=== PATIENT | female | born 1965 | race Caucasian/White ===

== ENCOUNTER → 2020-06-30 14:40 | Outpatient (CLI) | payer BC, SELFPAY ==
[2020-06-30 15:47] LABS: Basophils % 0.4 % (0.1-2.0); Eosinophils % 0.7 % (0.1-12.0); Hematocrit 40.7 % (37.0-47.0); Lymphocytes # 1.7 K/mm3 (0.7-4.5); Lymphocytes % 30.1 % (10-50); Mean Corpuscular HGB Conc 34.4 g/dL (31.8-35.4); Mean Corpuscular Hemoglobin 29.3 pg (27.0-31.2); Mean Corpuscular Volume 85.1 fl (81-99); Mean Platelet Volume 7.9 fl (7.4-10.4); Monocytes # 0.3 K/mm3 (0.1-1.0); Monocytes % 6.1 % (1.7-9.3); Neutrophils # 3.5 K/mm3 (1.8-7.8); Neutrophils % 62.7 % (37.0-80.0); Platelet Count 230 K/mm3 (142-424); Red Blood Count 4.79 M/mm3 (4.20-5.40); Red Cell Distribution Width 13.2 % (11.5-17.5); White Blood Count 5.5 K/mm3 (4.8-10.8)
== END ==
PROVIDERS: PCP Family Medicine; Visit Provider Family Medicine
DX: Z20.828 Contact with and (suspected) exposure to other viral communicable diseases (principal); U07.1 COVID-19
CPT/HCPCS: 36415; 85025; U0003

== ENCOUNTER → 2021-08-22 11:27 | Outpatient (CLI) | payer BC, SELFPAY | PROVIDERS: PCP Psychiatry & Neurology Sleep Medicine; Visit Provider Nurse Practitioner | DX: U07.1 COVID-19 (principal) | CPT/HCPCS: C9803; U0003; U0005 ==

== ENCOUNTER 2022-11-26 06:15 | Day surgery (SDC) | payer BC, SELFPAY ==
[2022-11-25 13:11] VITALS: BMI 30.9
[2022-11-26 06:28] VITALS: BP 147/55; PULSE 109; RESP 18; TEMP 36.6; O2SAT 96
[2022-11-26 06:57] LABS: Urine Pregnancy, HCG Qual. Negative (Negative)
[2022-11-26 07:21] VITALS: O2SAT 98
--- NOTE | 2022-11-26 07:56 | HMH.SCOPE ---
Procedure: Date: 11/26/22 Patient Date of :: 1965 Procedure Performed:: Colonoscopy with polypectomy Indications:: Screening Performing Provider:: Ace Silva MD Referring Provider:: Dr. John Sedation:: Monitored anesthesia care Procedure:: After informed consent was obtained the patient was taken to the endoscopy suite. Sedation ensued after the patient was transferred to the left lateral decubitus position. Pulse, blood pressure, and oxygen saturation were monitored throughout the procedure. Digital rectal exam revealed no significant abnormality. The colonoscope was placed in position. The entire colon was evaluated. The colonoscope was carefully removed and the patient was transferred to recovery in stable condition. Please see findings and specimens below for detail. Findings:: Bowel preparation moderate Moderate spasticity/lack of relaxation Polyps (see specimens) Specimens:: Adjacent periappendiceal polyps (cold biopsy forceps) Polyp at 60 cm (cold snare) Recommendations:: Timing of repeat colonoscopy is pending pathology but will likely be between 2-3 years secondary to moderate bowel preparation and spasticity/lack of relaxation. Complications:: No immediate Estimated blood obtained (mL): 1
[2022-11-26 08:00] VITALS: BP 81/48; PULSE 92; RESP 14; TEMP 36.1; O2SAT 93
--- NOTE | 2022-11-26 08:06 | P.PN_ITS ---
[facility] Disclaimer: The information contained in this section may have been updated after the patient was seen, as this information can be updated by other users. Medical History Allergies Hyperlipidemia Hypertension Surgical History History of colonoscopy Family History Other Family history of diabetes mellitus type II Social History Smoking Status: Never smoker alcohol intake: current substance use type: denies use current occupational status: employed Travel in the last 8 weeks: None caffeine: Yes [facility] Anesthesia Checklist Patient Identification Patient Identification: Verbal (Name & ) Structural Data Admitted From: Home Planned Operative Procedure/s: colonoscopy Consent for Planned Operative Procedure(s) Verified: Yes Airway Assessment C-Spine Mobility Assessed: Yes TMJ Mobility Assessed: Yes Dentition: Good Dentition Neurological Assessment Level of Consciousness: Awake, Alert and Appropriate Anesthesia Plan Anesthesia Risk discussed: Yes Anesthesia Plan: Verified ASA Class: II Anesthesia Type: MAC
[2022-11-26 08:10] VITALS: BP 91/56; PULSE 85; RESP 17; O2SAT 94
[2022-11-26 08:20] VITALS: BP 97/58; PULSE 79; RESP 17; O2SAT 97
[2022-11-26 08:30] VITALS: BP 101/59; PULSE 78; RESP 16; O2SAT 97
== END 2022-11-26 08:30 | disposition home or self-care (01) ==
PROVIDERS: PCP Family Medicine; Visit Provider Surgery
PROC: 0DJD8ZZ Inspection of Lower Intestinal Tract, Via Natural or Artificial Opening Endoscopic (ICD-10-PCS; CPT 45378; principal; 2022-11-26 07:30)
DX: Z12.11 Encounter for screening for malignant neoplasm of colon (principal); D12.4 Benign neoplasm of descending colon; Z79.899 Other long term (current) drug therapy
CPT/HCPCS: 45380; 45385; 81025

== ENCOUNTER → 2023-07-07 14:31 | Outpatient (CLI) | payer BC, SELFPAY ==
--- NOTE | 2023-07-07 14:46 | ECG_ITS ---
APPROVED REPORT Exam: Resting ECG HR:77 bpm ECG Measurements Heart Rate 77 AXES CA 159 P 48 QRSd 92 QRS 25 QT 378 T 21 QTc 409 Conclusion SINUS RHYTHM NORMAL ECG UNCONFIRMED REPORT Electronically signed by : Sancho Jane MD 07/08/2023 20:12:17
== END ==
LOC: RT 14:33
PROVIDERS: PCP Family Medicine; Visit Provider Nurse Practitioner Family
DX: R07.9 Chest pain, unspecified (principal)
CPT/HCPCS: 93005

== ENCOUNTER 2023-08-22 09:30 | Outpatient (RCR) | payer BC, SELFPAY ==
--- NOTE | 2023-06-12 15:20 | HMH.PTOPEV ---
PT Outpatient Evaluation Rehab PT Outpatient Evaluation Start: 06/12/23 15:08 Freq: Status: Active Protocol: Document 06/12/23 15:09 ALCIRA (Rec: 06/12/23 15:20 ALCIRA [id number]) E-signed By Dmitry Larry, PT Outpatient Therapy Subjective History Subjective History Pt reports insidious onset bilateral LE weakness beginning intermittently ~3 months ago. Pt reports difficulty has become more frequent with intermittent deep squating and kneeling while playing with grandchildren, ilir. 'after I' ve been on the floor with them .' Pt reports no pain in B/L knees or hips, 'it just feels like my legs won't push me back up sometimes.' New diagnosis of cancer in past 12 No months? Chief Complaint Weakness Symptom Type Other Symptoms Relieved By Nothing Symptoms Aggravated By Bending/Stooping,Physical Activity Prior Functional Limitations Squatting,Recreation Activity Current Functional Limitations Squatting,Recreation Activity Hip/Knee Eval Gait Observation General Gait Pattern Observation No Deviations/Normal Assistive Device Assistive Devices None / NA Palpation Tenderness bilateral Knee Palpation Finding None/Normal Hip Palpation Findings None/Normal MMT Hip Flexion Strength Grade 5 Normal Hip Abduction Strength Grade 4 Good Hip Adduction Strength Grade 5 Normal Hip Extension Strength Grade 4 Good Hip External Rotation Strength Grade 4 Good Hip Internal Rotation Strength Grade 4- Good- Knee Extension Strength Grade 5 Normal Knee Flexion Strength Grade 5 Normal ROM Hip Flexion w/Knee Extended Passive 0-45 Range of Motion (degrees) Hip External Rotation Passive Range of 0-30 Motion (degrees) Hip Internal Rotation Passive Range of 0-15 Motion (degrees) Knee Flexion Active Range of Motion ( 0-125 degrees) Lower Extremity Functional Index Activities Today, do you or would you have any difficulty at all with: a.Any of your usual work, housework or Moderate difficulty school activities b. Your usual hobbies, recreational or No difficulty sporting activities c. Getting into or out of the bath Moderate difficulty d. Walking between rooms A little bit of difficulty e. Putting on your shoes or socks A little bit of difficulty f. Squatting Extreme difficulty or unable to perform activity g. Lifting an object, like a bag of No difficulty groceries from the floor h. Performing light activities around No difficulty your home i. Performing heavy activities around Moderate difficulty your home j. Getting into or out of a car A little bit of difficulty k. Walking 2 blocks No difficulty l. Walking a mile No difficulty m. Going up or down 10 stairs (about 1 Moderate difficulty flight of stairs) n. Standing for 1 hour No difficulty o. Sitting for 1 hour No difficulty p. Running on even ground Quite a bit of difficulty q. Running on uneven ground Extreme difficulty or unable to perform activity r. Making sharp turns while running fast Extreme difficulty or unable to perform activity s. Hopping Moderate difficulty t. Rolling over in bed Extreme difficulty or unable to perform activity LEFI Score Lower Extremity Functional Index Score 48 Outpatient Therapy Assessment Impairments Problems/Impairmments Impaired Range of Motion, Impaired Strength,Impaired Squatting,Impaired Recreational Activities, Impaired Self Care/Self Management Prognosis Rehab Potential Good Clinical Impression Consistent with Diagnosis Yes Short Term Goals Number of Weeks 4 Increase Range of Motion Yes: WFL B/L HIPS,KNEES Increase Strength Yes: 4+-5/5 B/L LE'S Improve Ability to Squat Yes: WFL FULL-DEPTH Return to Recreational Activities Yes: PLAYING WITH GRANDCHILDREN WFL Patient to be Ind w/ HEP Yes Patient to be Ind w/ Advanced HEP Yes Outpatient Therapy Plan of Care Treatment Plan May Include Therapeutic Exercise Including Home Yes Exercise Program Manual Therapy Techniques Yes Neuromuscular Re-education Yes Therapeutic Activities to Return to Yes Previous Functional/Work Level ADL/Self Care Education Yes Thermal Modalities Yes Electrical Stimulation Yes Eval/Re-Eval Yes Frequency Times per week 2-3 Duration Number of Weeks 4-6 Addendums This patient is a candidate for social No or vocational rehab? Patient/Guardian verbally acknowledges Yes understanding of treatment program and consents to further treatment? Patient/Guardian verbally acknowledges Yes understanding of diagnosis, prognosis and goals for treatment? Eval Complexity PT Charges 87967 - Low Complexity Shoulder/Elbow Eval Shoulder Objective Measurements Elbow Objective Measurements PHYSICIAN CERTIFICATION: I certify the specified therapy services for Daja Claudio are required, authorized, and reviewed every 30 days.
--- NOTE | 2023-07-23 16:01 | HMH.RHREAS ---
Rehab Reassessment Rehab OP Re-assessment Start: 06/12/23 15:08 Freq: Status: Active Protocol: Document 07/23/23 15:53 ALCIRA (Rec: 07/23/23 16:01 PEDROMICHAEL [id number]) E-signed By Dmitry Larry, PT Lower Extremity Functional Index Activities Today, do you or would you have any difficulty at all with: a.Any of your usual work, housework or A little bit of difficulty school activities b. Your usual hobbies, recreational or A little bit of difficulty sporting activities c. Getting into or out of the bath Quite a bit of difficulty d. Walking between rooms No difficulty e. Putting on your shoes or socks No difficulty f. Squatting Extreme difficulty or unable to perform activity g. Lifting an object, like a bag of Moderate difficulty groceries from the floor h. Performing light activities around No difficulty your home i. Performing heavy activities around Moderate difficulty your home j. Getting into or out of a car Quite a bit of difficulty k. Walking 2 blocks No difficulty l. Walking a mile No difficulty m. Going up or down 10 stairs (about 1 A little bit of difficulty flight of stairs) n. Standing for 1 hour No difficulty o. Sitting for 1 hour No difficulty p. Running on even ground Moderate difficulty q. Running on uneven ground Quite a bit of difficulty r. Making sharp turns while running fast Extreme difficulty or unable to perform activity s. Hopping Quite a bit of difficulty t. Rolling over in bed A little bit of difficulty LEFI Score Lower Extremity Functional Index Score 50 Rehab Re-assessment Subjective Subjective Pt reports absence from skilled P.T. d/t 'cardiac issues, but my doctor cleared me last week to retrun to PT.' Pt reports overall improvement in walking/ standing endurance since I eval, however reports no change in the ability to perform 'the deep squatting activity' w/o use of arms to uh up. Objective Objective Notes MMT: B/L HIP FLX 4+-5/5, B/L HIP ABD 4+/5, B/L HIP ADD 4+-5 /5, B/L HIP EXT 4+-5/5, B/L HIP IR 4-4+/5, B/L HIP ER 4+/5 , B/L KNEE FLX AND EXT 5/5 LEF INDEX: 50 VS 48 ON I EVAL AROM: B/L HIP AND KNEE FLX AND EXT WFL Assessment Progress Assessment Progressing as Expected Assessment Notes IMPROVED STRENGTH, LEF INDEX AND ENDURANCE Patient goals met STG'S 10/28 Goals Not Met STG'S 10/28 Plan Plan Pt to continue w/skilled P.T. to make further improvements in strength to allow for optimal function Frequency of Therapy 1-2x/wk Duration of therapy 3-5WKS Time and Billing Re-Eval Time 12 Re-Eval Billing Units 1 PHYSICIAN CERTIFICATION: I certify the specified therapy services for Daja Claudio are required, authorized, and reviewed every 30 days.
--- NOTE | 2023-08-22 10:14 | HMH.RHREAS ---
Rehab Reassessment Rehab OP Re-assessment Start: 06/12/23 15:08 Freq: Status: Active Protocol: Document 08/22/23 08:03 ALCIRA (Rec: 08/22/23 10:13 TEREBRYAN [id number]) E-signed By Dmitry Larry, PT Rehab Re-assessment Subjective Subjective Pt reports overall 'I feel better since I've started therapy, but it hasn't helped my issue with specific activities. I'm ready to get more testing done to see what' s going on.' Objective Objective Notes MMT: B/L HIP FLX 4+-5/5, B/L HIP ABD 4+/5, B/L HIP ADD 4+-5 /5, B/L HIP EXT 4+-5/5, B/L HIP IR 4-4+/5, B/L HIP ER 4+/5 , B/L KNEE FLX AND EXT 5/5 AROM: B/L HIP AND KNEE FLX AND EXT WFL Assessment Progress Assessment Slower Than Expected Assessment Notes plateaued strength and reported functional progress since I eval Patient goals met STG'S 3/6 Goals Not Met STG'S 3/6 Plan Plan Pt to D/C w/continuation of HEP and to seek more diagnostic imaging and studies via PCP Frequency of Therapy na Duration of therapy na Time and Billing Re-Eval Time 11 Re-Eval Billing Units 1 PHYSICIAN CERTIFICATION: I certify the specified therapy services for Daja Claudio are required, authorized, and reviewed every 30 days.
== END 2023-08-22 10:30 | disposition home or self-care (01) ==
LOC: PT 09:30
PROVIDERS: PCP Family Medicine; Visit Provider Family Medicine
DX: R29.898 Other symptoms and signs involving the musculoskeletal system (principal)
CPT/HCPCS: 97110; 97163; 97164; 97530

== ENCOUNTER 2024-02-04 07:42 | Outpatient (CLI) | payer BC, SELFPAY ==
--- NOTE | 2024-02-04 07:48 | MM_ITS ---
PROCEDURE INFORMATION: Exam: Bilateral Screening 3D Mammography Exam date and time: 02/04/2024 7:48 AM Age: 58 years old Clinical indication: Screening mammogram TECHNIQUE: Imaging protocol: Bilateral Screening tomosynthesis and 2D mammography including computer-aided detection (CAD) when performed. COMPARISON: DMSB DIGITAL MAMM-SCREEN BILATERAL 10/12/2012 4:29 PM FINDINGS: MAMMOGRAPHY: Breast composition: There are scattered areas of fibroglandular density. Mass: None. Architectural distortion: No new or suspicious architectural distortion. Calcifications: No new or suspicious calcifications are present Asymmetric density: No new or suspicious asymmetric density is present Skin thickening: None. Axillary adenopathy: None. IMPRESSION: No mammographic evidence of malignancy. Recommend annual screening mammography unless otherwise clinically indicated. ASSESSMENT: BI-RADS category 1: Negative.
== END 2024-02-04 23:59 | disposition home or self-care (01) ==
LOC: RAD 07:43
PROVIDERS: PCP Family Medicine; Visit Provider Family Medicine
DX: Z12.31 Encounter for screening mammogram for malignant neoplasm of breast (principal)
CPT/HCPCS: 77063; 77067

== ENCOUNTER 2024-02-09 11:54 | Outpatient (CLI) | payer BC, SELFPAY ==
--- NOTE | 2024-02-09 12:00 | XR_ITS ---
FINAL REPORT CLINICAL HISTORY: HIP PAIN UNSPECIFIED COMPARISON: None FINDINGS: RIGHT HIP Two views of the right hip demonstrate no acute fracture or dislocation. The joint spaces appear normal. The visualized bony structures are well aligned. No soft tissue abnormality is seen. IMPRESSION: No acute bony abnormality. Reviewed, Interpreted and Dictated by Kemar Santiago MD Transcribed by Eugenie Kaur Authenticated and . [facility]
--- NOTE | 2024-02-09 12:00 | XR_ITS ---
FINAL REPORT CLINICAL HISTORY: HIP PAIN UNSPECIFIED COMPARISON: None FINDINGS: LEFT HIP: Two views of the left hip demonstrate no acute fracture or dislocation. The joint spaces appear normal. The visualized bony structures are well aligned. No soft tissue abnormality is seen. IMPRESSION: No acute bony abnormality. Reviewed, Interpreted and Dictated by Kemar Santiago MD Transcribed by Eugenie Kaur Authenticated and [facility][1]
== END 2024-02-09 23:59 | disposition home or self-care (01) ==
LOC: RAD 11:55
PROVIDERS: PCP Family Medicine; Visit Provider Family Medicine
DX: M25.551 Pain in right hip (principal); M25.552 Pain in left hip
CPT/HCPCS: 73502

== ENCOUNTER 2024-02-25 07:45 | Outpatient (CLI) | payer BC, SELFPAY ==
--- NOTE | 2024-02-25 | CA_ITS ---
FINAL REPORT TECHNIQUE: Color Doppler, duplex Doppler and gardner scale sonography of the bilateral neck vasculature was performed. Velocities were measured in the carotid arteries. Stenosis evaluation based on velocity criteria. CLINICAL HISTORY: HTN, HLD, bilateral bruits COMPARISON: None FINDINGS: The peak systolic velocity of the right common carotid artery is 119 cm/sec and internal carotid artery 130 cm/sec. The diastolic velocity in the internal carotid artery is 41 cm/sec. The ICA/CCA ratio is 1.1. Visually, a small amount of plaque is seen. These findings are consistent with less than 50% stenosis. The external carotid artery is patent. The right vertebral artery is patent with antegrade flow. The peak systolic velocity of the left common carotid artery is 135 cm/sec and internal carotid artery 128 cm/sec. The diastolic velocity in the internal carotid artery is 41 cm/sec. The ICA/CCA ratio is 0.95. Visually, a small amount of plaque is seen. These findings are consistent with less than 50% stenosis. The external carotid artery is patent. The left vertebral artery is patent with antegrade flow. IMPRESSION: No evidence of significant carotid stenosis. Bilateral patent vertebral arteries. If indicated, CTA or MRA could further evaluate. Reviewed, Interpreted and Dictated by Jet Ye III, MD Transcribed by Eugenie Kaur Authenticated and [facility]
== END 2024-02-25 23:59 | disposition home or self-care (01) ==
LOC: RT 07:47
PROVIDERS: PCP Family Medicine; Visit Provider Family Medicine
DX: R09.89 Other specified symptoms and signs involving the circulatory and respiratory systems (principal)
CPT/HCPCS: 93880

== ENCOUNTER 2024-03-31 11:50 | Outpatient (CLI) | payer BC, SELFPAY ==
--- NOTE | 2024-03-31 11:57 | XR_ITS ---
FINAL REPORT CLINICAL HISTORY: LOWER BACK PAIN, UNSPECIFIED pain/numbing after sitting for a little while COMPARISON: None FINDINGS: 5 views of the lumbar spine were obtained. There is no evidence of fracture or dislocation. The vertebral alignment is normal. Mild degenerative change is present with facet arthropathy in the lower lumbar spine. Vascular calcifications are present in the soft tissues. IMPRESSION: Mild degenerative change with lower lumbar facet arthropathy. No acute bony abnormality identified. Reviewed, Interpreted and Dictated by Jet Ye III, MD Transcribed by Eugenie Kaur Authenticated and [facility]
== END 2024-03-31 23:59 | disposition home or self-care (01) ==
LOC: RAD 11:53
PROVIDERS: PCP Family Medicine; Visit Provider Family Medicine
DX: M54.50 Low back pain, unspecified (principal)
CPT/HCPCS: 72110

== ENCOUNTER 2025-03-23 09:45 | Outpatient (CLI) | payer BC, SELFPAY ==
--- OUTSIDE RECORDS SUMMARY | 2024-09-30 11:30 | XMS_ITS ---
Author Organization [facility] Address [address] [place] [phone] Care Team Providers Care Track Car Operator Name Role Phone Anastacio Bay Primary Care Provider Sima Salamanca Unavailable [phone] Allergies No Known Allergies Results Component Value [...] day(s) 05/26/2015 Active Vitamin D3 1.25 MG (24965 UT) 1 cap(s) orally once a week; [...] Duration: 30 day(s) 03/25/2024 Active Vital Signs Blood pressure systolic 140 mm Hg 09/30/19 25 Blood pressure diastolic 78 mm Hg 025 Heart Rate 115 /min 09/30/2024 Height 67.50 in 09/30/2024 Weight 221 lbs 09/30/2024 BMI 34.10 kg/m2 09/30/2024 Encounters Encounter Location Date Provider Diagnosis [facility] [address] [facility] [address] [place] [phone] 09/30/2024 Sima Salamanca Influenza A J10. 1 [...] * Renate CLAUDIOOB:[birth year] (59 yo F)Acc No.[id number]:09/30/2024 Progress Notes Patient: Daja RAYMUNDO Provider: ISHAAN Stephenson :1965 A ge:58 Y S ex:Female Date:09/30/2024 Address:[address] [place], [place] [id number] Pcp:Anastacio Bay Subjective: * Chief Complaints: * [...] day , Taking Vitamin D3 1.25 MG (31379 UT) Capsule 1 cap(s) orally once a [...] * Procedure Codes: 9 4760 [place], [address] Flu Test- Nasal Swab, Modifiers: QW , 84068 COVID TEST IN HOUSE, Modifiers: QW , 3077F SYST BP = 140 MM HG6 IT, 3078F DIAST BP < 80 MM HG * Follow Up: p rn * Images: Billing Information: * Visit Code: 91765 Office Visit, Est Pt., Level 3. * Procedure Codes: [address] [place]. [address] Flu Test- Nasal Swab. Modifiers: QW 26585 COVID TEST IN HOUSE. Modifiers: QW 3077F SYST BP = 140 MM HG6 IT. 3078F DIAST BP < 80 MM HG. * Electronic signature of IHSAAN Manriquez on 03/23/2025 at 09:48 AM EDT Sign off status: Pending * Provider: ISHAAN Stephenson Date: 0 09/30/2024 Generated for Monique pastor/Summer/eTransmitting on: 0 03/23/2025 09:48 AM EDT History and Physical Notes * HPI [...]
--- OUTSIDE RECORDS SUMMARY | 2024-10-25 12:00 | XMS_ITS ---
Author Organization [facility] Address [address] [place] [phone] Care Team Providers Care Photolithographer Name Role Phone LowdenAnastacio rand Primary Care Provider [phone] Jorden John Unavailable [phone] Allergies No Known Allergies Results Component Value Reference Range Notes X ray : Spine, sacrum and co ccyx Reviewed date:02/10/2025 11:16:34 AM Interpretation:pt declined Performing Lab: Notes/Report: pt declined REASON FOR VISIT 5 mos checkup, Needs labs, colon cancer screening, Tdap, & shingles vaccine Medications Medication SIG (Take, Route, Frequency, Duration) Notes Start Date End Date Status Promethazine-DM 6.25-15 MG/5ML 5 ml as needed Orally every 6 hrs, prn 09/30/2024 Active Fluticasone Propionate 50 MCG/ACT 1 spray in each nostril Nasally Once a day; Duration: 30 day(s) 03/25/2024 Active Fexofenadine HCl 180 mg TAKE ONE TABLET BY MOUTH EVERY DAY with water. DO not take with fruit juices.; Duration: 30 Active Metoprolol Tartrate 25 mg 1 tab(s) Orall y once daily Active Vitamin C 500 MG 1 tab(s) orally once a day; Duration: 30 day(s) Active Atorvastatin Calcium 20 mg 1 tablet Oral ly once daily; Duration: 90 days Active Escitalopram Oxalate 10 mg 1 tablet Oral ly once daily; Duration: 90 days Active Losartan Potassium-HCTZ 50-12.5 MG 1 tablet Orally Once a day; Duration: 30 day(s) Active Vitamin D3 1.25 MG (08120 UT) 1 cap(s) orally once a week; Duration: 84 Active Vitamin B-12 1000 MCG 1 tab(s) orally on ce a day; Duration: 30 day(s) 05/26/2015 Active Immunizations Vaccine Route Administration Date Status Comme nts Tetanus Tdap-Adacel (over 7yrs) IM Intramuscular 10/25/2024 Administered Problems Problem Type SNOMED Code ICD Code Onset Dates Problem Status W/U Status Risk Notes Problem Pain in coccyx (finding) (96601656) Coccygeal pain (M53.3) Active confirmed Vital Signs Blood pressure systolic 122 mm Hg 10/26/19 25 Blood pressure diastolic 76 mm Hg 025 Heart Rate 81 /min 10/25/2024 Height 67.50 in 10/25/2024 Weight 223.0 lbs 10/25/2024 BMI 34.41 kg/m2 10/25/2024 Encounters Encounter Location Date Provider Diagnosis [facility] [address] [place] [phone] 10/25/2024 Jorden John Coccygeal pain M53.3 and Encounter for immunization Z23 Assessments Encounter Date Diagnosis (ICD Code) Assessment Notes Treatment Notes Treatment Clinical Notes Section Notes 10/25/2024 Coccygeal pain (ICD-10 - M53.3) 10/25/2024 Encounter for immunization (ICD-10 - Z23) Plan Of Treatment Medication Medication Name Sig Start Date Stop Date Notes CeleBREX 200 MG 1 capsule with food Orally Once a day Next Appt Details Follow Up: Paz Silverio n: Progress Notes * Renate CLAUDIOOB:[birth year] (59 yo F)Acc No.[id number]:10/25/2024 Progress Notes Patient: Daja RAYMUNDO Provider: Jorden John M.D. :1965 A ge:58 Y S ex:Female Date:10/25/2024 Address:[address] [place] [address] [id number] Pcp:Anastacio Bay Subjective: * Chief Complaints: * 1 . 5 mos checkup. 2. Needs labs, colon cancer screening, Tdap, & shingles vaccine. * HPI: C ardiology: The pt is here today for a check up on Hypertension and Hyperlipidemia. Pt states she is doing good except for continued pain in her tail bone when she sits for a while. Pt states her LMP was 6 months ago and would like to have her hormone levels checked. Pt would like to know if she should be vaccinated against measles or if she has an immunity since she had a measles outbreak as a child. Pt is not fasting. Pt states she is needing a refill for Fexofenadine and escitalopram sent to clinic pharmacy. Denies : Chest Pain. D enies : Short of Breath. D enies : Dizziness. D enies : Palpitations. * ROS: D ERMATOLOGY: no R bradley. n o H sweetie. G ASTROENTEROLOGY: no N ausea. n o V omiting. n o D iarrhea.? U ROLOGY: no D ifficulty urinating. n o B lood in urine. * Medical History: H ypertension, Hyperlipidemia, Allergic Rhinitis. * Surgical History: C -Section , D&C , Esophageal scope for chest pain 03/17/2006, colonoscopy, Dr. Silva, polyps 2022. * Family History: F ather: alive. M [...] nostril Nasally Once a day , Taking Vitamin B-12 1000 MCG Tablet 1 tab(s) orally once a day , Taking Vitamin D3 1.25 MG (58547 UT) Capsule 1 cap(s) orally once a [...] tablet Orally Once a day , Taking Promethazine-DM 6.25-15 MG/5ML Syrup 5 ml as needed Orally every 6 hrs, prn , Taking Fexofenadine HCl 180 mg Tablet TAKE ONE TABLET BY MOUTH EVERY DAY with water. DO not take with fruit juices. , Discontinued Tamiflu 75 MG Capsule 1 capsule Orally Twice a day , Medication List reviewed and reconciled with the patient * Allergies: N .K.D.A. Objective: * Vitals: W t:223.0, Temp:98.1, BP:122/76, HR:81, Nurse:HANSA, Ht: 67.50, BMI:34.41. Assessment: * Assessment: 1. C occygeal pain - M53.3 (Primary) 2 . E ncounter for immunization - Z23? Plan: * Treatment: * Immunizations: Tetanus Tdap-Adacel (over 7yrs) : 0.5 mL (Route: Intramuscular) given by Becki Ashton on Left Deltoid (Encounter for immunization) * Procedure Codes: 3 074F SYST BP LT 130 MM HG, 3078F DIAST BP < 80 MM HG * Follow Up: Jorge Luis Gao * Images: Billing Information: * Visit Code: 72369 Office Visit, Est Pt., Level 3. * Procedure Codes: 3074F SYST BP LT 130 MM HG. 3078F DIAST BP < 80 MM HG. * Electronic signature of Jorden John MD on 03/23/2025 at 09:48 AM EDT Sign off status: Pending * Provider: Jorden Jhon M.D. Date: 10/25/2024 Generated for Monique pastor/Summer/Abidasmitting on: 0 03/23/2025 09:48 AM EDT History and Physical Notes * HPI (History of Present Illness) Category Sub-Category Detail Notes Category Not es Cardiology Short of Breath Chest Pain Palpitations Dizziness
--- OUTSIDE RECORDS SUMMARY | 2025-03-21 06:00 | XMS_ITS ---
[facility] Address [address] [place] [id number] Care Team Providers Care Melter Clerk Name Role Phone Anastacio Bay Primary Care Provider [phone] Bianka Yuan Unavailable [phone] Allergies No Known Allergies Results Component Value Reference Range Notes CBC Venipuncture (in house) (Not yet reviewed by provider) Interpretation: Performing Lab: Notes/Report: wbc 5.6 3.5 - 10 lymph 21.0 15 - 50 mid 5.8 2 - 15 gran 73.2 35 - 80 rbc 4.56 3.5 - 5.5 hgb 13.4 11.5 - 16.5 hct 39.3 35 - 55 mcv 86.1 75 - 100 mch 29.4 25 - 35 mchc 34.1 31 - 38 platlet 208 100 - 400 P-Comprehensive Metabolic Pa char[place] (CMP) (Not yet reviewed by provider) Interpretation:BS 102 Performing Lab: Notes/Report: Test performed by [facility] [address] [facility] , [address], [place] [address] Remi Flores MD, Mine Deputy CLIA: [id number] Sodium 140 135-145 mmol/L Potassium 4.2 3.5-5.3 mmol/L Chloride 105 97-108 mmol/L CO2 25 20-32 mmol/L Glucose 102 65-99 mg/dL BUN 9 6-20 mg/dL Creatinine 0.68 0.50-1.00 mg/dL Calcium 9.1 8.6-10.4 mg/dL eGFR by Creatinine 101 >59 mL/min/1.73m2 Protein 6.7 6.0-8.3 g/dL Albumin 4.1 3.5-5.3 g/dL Alkaline Phosphatase 97 35-121 IU/L ALT (SGPT) 30 <5-47 IU/L AST (SGOT) 19 <5-40 IU/L Bilirubin, Total 0.7 <0.2-1.2 mg/dL A/G Ratio 1.6 1.1-2.5 P-Lipid Panel (Not yet revie wed by provider) Interpretation:LDL 90;HDL 51;TG 153 Performing Lab: Notes/Report: Test performed by [facility], [address] , [address], [place] [address] Remi Flores MD, Mine Deputy CLIA: [id number] Cholesterol 172 <200 mg/dL Triglycerides 153 <150 mg/dL HDL Cholesterol 51 >39 mg/dL Cholesterol / HDL Ratio 3.37 0.00-4.44 Ratio Non-HDL Cholesterol 121 <130 mg/dL LDL Cholesterol (Calculation) 90 <130 mg/dL LDL Cholesterol Levels* Less than 100 mg/dL Optimal 100 to 129 mg/dL Near Optimal/ Above Optimal 130 to 159 mg/dL Borderline High 160 to 189 mg/dL High 190 mg/dL and above Very High * Categories as recommended by the 2004 ATPIII guidelines LDL/HDL Ratio 1.8 <3.3 Ratio LDL Cholesterol Patient History Test Date: 03/12/2023 LDL Results: 100 Units: mg/dL % Change: - Test Date: 03/31/2024 LDL Results: 121 Units: mg/dL % Change: +21% Test Date: 03/21/2025 LDL Results: 90 Units: mg/dL % Change: -25% REASON FOR VISIT pap smear, Needs labs, mammogram, & shingles vaccine Medications Medication SIG (Take, Route, Frequency, Duration) Notes Start Date End Date Status Atorvastatin Calcium 20 mg TAKE ONE TABL ET BY MOUTH ONCE DAILY Active GNP Fexofenadine HCl 180 mg TAKE ONE TAB LET BY MOUTH EVERY DAY with water. DO not take with fruit juices. Active Promethazine-DM 6.25-15 MG/5ML 5 ml as needed Orally every 6 hrs, prn 09/30/2024 Active Vitamin B-12 1000 MCG 1 tab(s) orally on ce a day; Duration: 30 day(s) 05/26/2015 Active Vitamin D3 1.25 MG (14098 UT) 1 cap(s) orally once a week; Duration: 84 Active Vitamin C 500 MG 1 tab(s) orally once a day; Duration: 30 day(s) Active Fluticasone Propionate 50 MCG/ACT 1 spray in each nostril Nasally Once a day 03/25/2024 Active Escitalopram Oxalate 10 mg TAKE ONE TABL ET BY MOUTH ONCE DAILY Active Immunizations Vaccine Route Administration Date Status Comme nts Shingrix IM Intramuscular 03/21/2025 Administered Problems Problem Type SNOMED Code ICD Code Onset Dates Problem Status W/U Status Risk Notes Problem Uterine enlargement (N85.2) Active confirmed Vital Signs Blood pressure systolic 120 mm Hg 03/21/20 25 Blood pressure diastolic 60 mm Hg 025 Heart Rate 80 /min 03/21/2025 Height 67.50 in 03/21/2025 Weight 223.2 lbs 03/21/2025 BMI 34.44 kg/m2 03/21/2025 Encounters Encounter Location Date Provider Diagnosis [facility] [address] [facility] [address] [place] [id number] 03/21/2025 Bianka Yuan Essential hypertensi on I10 ; Mixed hyperlipidemia E78.2 ; Other seasonal allergic rhinitis J30.2 ; Anxiety F41.9 ; Uterine enlargement N85.2 ; Encounter for vaccination Z23 and Cervical cancer screening Z12.4 Assessments Encounter Date Diagnosis (ICD Code) Assessment Notes Treatment Notes Treatment Clinical Notes Section Notes 03/21/2025 Essential hypertension (ICD-10 - I10) 03/21/2025 Mixed hyperlipidemia (ICD-10 - E78.2) 03/21/2025 Other seasonal allergic rhinitis (ICD-10 - J30.2) 03/21/2025 Anxiety (ICD-10 - F41.9) 03/21/2025 Uterine enlargement (ICD-10 - N85.2) Given uterine enlargement and possible cyst on cervix will get a transvaginal US 03/21/2025 Encounter for vaccination (ICD-10 - Z23) preventive 03/21/2025 Cervical cancer screening (ICD-10 - Z12.4) Pap smear done today. Will call with results. Plan Of Treatment Medication Medication Name Sig Start Date Stop Date Notes Atorvastatin Calcium 20 mg TAKE ONE TABL ET BY MOUTH ONCE DAILY GNP Fexofenadine HCl 180 mg TAKE ONE TAB LET BY MOUTH EVERY DAY with water. DO not take with fruit juices. Losartan Potassium-HCTZ 50-1 2.5 MG TAKE ONE TABLET BY MOUTH EVERY DAY Fluticasone Propionate 50 MCG/ACT 1 spray in each nostril Nasally Once a day 03/25/2024 Escitalopram Oxalate 10 mg TAKE ONE TABL ET BY MOUTH ONCE DAILY Treatment Notes Assessment Notes Uterine enlargement Given uterine enlarg ement and possible cyst on cervix will get a transvaginal US Encounter for vaccination preventive Cervical cancer screening Pap smear done today. Will call with results. Pending Test Test Name Order Date CBC Venipuncture (in house) 03/21/2025 ultrasound : Transvaginal 03/21/2025 P-Pap Test Thin Prep 03/21/2025 P-Comprehensive Metabolic Panel (CMP) P-Lipid Panel 03/21/2025 Progress Notes * Renate CLAUDIOOB:[birth year] (59 yo F)Acc No.[id number]:03/21/2025 Progress Notes Patient: Daja RAYMUNDO Provider: THERESA Pierre :1965 A ge:59 Y S ex:Female Date:03/21/2025 Address:[address] [place] [address] GAIL BLACKMON [id number] Pcp:Anastacio Bay Subjective: * Chief Complaints: * 1 . Pap smear. 2. Needs labs, mammogram, & shingles vaccine. * HPI: G YN: 59 year old female presents with c/o amenorrhea n o menes for 6 months. c/o routine pap smear P t here for pap smear. c/o missed menstrual cycle. c/o control t ubal ligation. Denies : abnormal vag bleeding. D enies : vaginal discharge. D enies : abdominal pain. D enies : pelvic pain. D enies : Fever. D enies : incontinence. D enies : dysmenorrhea. D enies : menorrhagia. D enies : dysparaunia. D enies : breast complaints. D enies : hot flashes. D enies : Vaginal Itching. C ardiology: BloodPressure at Home P t states that she has been checking her BP at home and its been running low. Pt states this morning was 133/64. * ROS: C ARDIOLOGY: no C hest pain. L eg edema y es. n o S hortness of breath. D ERMATOLOGY: no R bradley. n o H sweetie. F EMALE REPRODUCTIVE: no H eavy periods. n o D ysparaunia. S exually active yes. n o D ysmenorrhea. n o I nfertility. n o F requent yeat infections. n o P elvic pain. n o B reast pain. n o N ipple discharge. C ontraception t ubal ligation. n o A bnormal vaginal discharge. n o H ot flashes.? G ASTROENTEROLOGY: no N ausea. n o V omiting. n o D iarrhea.? M USCULOSKELETAL: Joint pain y es, b ilateral feet. P SYCHOLOGY: Depression y es, m ed helps. U ROLOGY: no D ifficulty urinating. n o B lood in urine. * Medical History: H ypertension, Hyperlipidemia, Allergic Rhinitis. 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 L ast mammogram date . D enies H/O Abnormal pap smear c one. D ate of Last Period . D enies H/O STD. H /O control?BTL. * OB History: T otal pregnancies 3 . T otal living children 3 . C section(s) 1 . P regnancy # 1: N . P regnancy # 2: N . P egnancy # 3 P rimary C/S. * Surgical History: C -Section , D&C [...] day , Taking Vitamin D3 1.25 MG (57941 UT) Capsule 1 cap(s) orally once a week , Taking Vitamin C 500 MG Tablet 1 tab(s) orally once a day , Taking Promethazine-DM 6.25-15 MG/5ML Syrup 5 ml as needed Orally every 6 hrs, prn , Taking Atorvastatin Calcium 20 mg Tablet TAKE ONE TABLET BY MOUTH ONCE DAILY , Taking Escitalopram Oxalate 10 mg Tablet TAKE ONE TABLET BY MOUTH ONCE DAILY , Taking Losartan Potassium-HCTZ 50-12.5 MG Tablet TAKE ONE TABLET BY MOUTH EVERY DAY , Taking GNP Fexofenadine HCl 180 mg Tablet TAKE ONE TABLET BY MOUTH EVERY DAY with water. DO not take with fruit juices. , Discontinued Metoprolol Tartrate 25 mg Tablet 1 tab(s) Orally once daily , Medication List reviewed and reconciled with the patient * Allergies: N .K.D.A. Objective: * Vitals: W t: 223.2, Temp: 98.0, BP: 120/60, HR: 80, Nurse: lizzy, Ht: 67.50, BMI:34.44. * Examination: G eneral Examination: General Appearance: N AD, appears healthy, alert, pleasant.?HEENT: n ormal, PERRLA, TM's normal. O ral cavity: n ormal, mucosa moist and WNL.?Neck: n o lymphadenopathy. H eart: R RR. L ungs: n ormal, clear to auscultation. A bdomen: n ormal, bowel sounds present, no organomegaly or masses. N eurologic Exam: a lert and oriented. S kin: n ormal, no rash. P eripheral pulses: n ormal (2+) bilaterally. E xtremities: t race leg edema. G enitalia: n ormal external genitalia, poss cyst on cervix. G YN: External genitalia n ormal. U rethra: m eatus normal. V agina: n ormal, no lesions. C ervix: c ervical cyst, no cervical movement tenderness. U terus: u niformly enlarged, normal mobility, nontender. A dnexa: n o masses or tenderness bilaterally. R ectal exam: e xternal hemorrhoid one small. B reasts: n ormal, no lesions palpable, no signs of mastitis, no dimpling, bilateral, symmetrical, no dominate masses, no lymph nodes palpable. Assessment: * Assessment: 1. E ssential hypertension - I10 (Primary) 2 . M ixed hyperlipidemia - E78.2 3 . O ther seasonal allergic rhinitis - J30.2 4 . A nxiety - F41.9 5 . U terine enlargement - N85.2 6 . E ncounter for vaccination - Z23 7 . C ervical cancer screening - Z12.4 Plan: * Treatment: Value Reference Range A /G Ratio 1.6 1.1-2.5 - * A lbumin 4.1 3.5-5.3 - g/dL * A lkaline Phosphatase 97 35-121 - IU/L * A LT (SGPT) 30 <5-47 - IU/L * A ST (SGOT) 19 <5-40 - IU/L * B ilirubin, Total 0.7 <0.2-1.2 - mg/dL * B UN 9 6-20 - mg/dL * C alcium 9.1 8.6-10.4 - mg/dL * C hloride 105 97-108 - mmol/L * C O2 25 20-32 - mmol/L * C reatinine 0.68 0.50-1.00 - mg/dL * G lucose 102 H 65-99 - mg/dL * P otassium 4.2 3.5-5.3 - mmol/L * S odium 140 135-145 - mmol/L * P rotein 6.7 6.0-8.3 - g/dL * e GFR by Creatinine 101 >59 - mL/min/1.73m2 2.?Mixed hyperlipidemia? Continue Atorvastatin Calcium Tablet, 20 mg, TAKE ONE TABLET BY MOUTH ONCE DAILY.?LAB: P-Lipid Panel (Collection Date & Time - 03/21/2025 10:20 AM)?LDL 90;HDL 51;TG 153* Value Reference Range C holesterol / HDL Ratio 3.37 0.00-4.44 - Ratio * C holesterol 172 <200 - mg/dL * H DL Cholesterol 51 >39 - mg/dL * L DL Cholesterol (Calculation) 90 <130 - mg/d L * L DL/HDL Ratio 1.8 <3.3 - Ratio * N on-HDL Cholesterol 121 <130 - mg/dL * T riglycerides 153 H <150 - mg/dL ?LAB: CBC Venipuncture (in house) (Collection Date & Time - 03/21/2025)* Value Reference Range w bc 5.6 3.5 - 10 * l ymph 21.0 15 - 50 * m id 5.8 2 - 15 * g ran 73.2 35 - 80 * r bc 4.56 3.5 - 5.5 * h gb 13.4 11.5 - 16.5 * h ct 39.3 35 - 55 * m cv 86.1 75 - 100 * m ch 29.4 25 - 35 * m chc 34.1 31 - 38 * p latlet 208 100 - 400 * Jo Beard 03/21/2025 1 2:07:27 PM EDT > 3.?Other seasonal allergic rhinitis? Continue Fluticasone Propionate Suspension, 50 MCG/ACT, 1 spray in each nostril, Nasally, Once a day;?Continue GNP Fexofenadine HCl Tablet, 180 mg, TAKE ONE TABLET BY MOUTH EVERY DAY with water.DO not take with fruit juices..??4.?Anxiety ? Continue Escitalopram Oxalate Tablet, 10 mg, TAKE ONE TABLET BY MOUTH ONCE DAILY.??5.?Uterine enlargement?Imaging: ultrasound : Transvaginal* Magui De La Torre 03/21/2025 11:2 3:21 AM EDT > no auth required; CPT code 34590; faxed to [facility] Scheduling Notes: Given uterine enlargement and possible cyst on cervix will get a transvaginal US??6.?Encounter for vaccination? Notes: preventive??7.?Cervical cancer screening?LAB: P-Pap Test Thin Prep Notes: Pap smear done today. Will call with results.?? * Immunizations: Shingrix : 0.5 (Route: Intramuscular) given by VERNA Chan on Left Arm (Encounter for vaccination) * Procedure Codes: 8 5025 CBC WITH AUTO DIFF, 53436 VENIPUNCT, ROUTINE* * Images: Billing Information: * Visit Code: 57949 Preventive Care Est Pt Age 40-64. * Procedure Codes: 36249 CBC WITH AUTO DIFF. 49348 VENIPUNCT, ROUTINE*. 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
--- OUTSIDE RECORDS SUMMARY | 2025-03-23 09:48 | XMS_ITS | Patient Health Record ---
Author Organization [facility] Address [address] [place] [id number] Care Team Providers Care Software Intern Name Role Phone Anastacio Bay Primary Care Provider Jorden oJhn Unavailable [phone] Bianka Yuan Unavailable [phone] Sima Salamanca Unavailable [phone] Allergies No Known Allergies Results Component Value Reference Range Notes Influenza Screen (in house) Reviewed date:09/30/2024 05:01:10 PM Interpretation: Performing Lab: Notes/Report: results Pos A Covid test (in house) Reviewed date:09/30/2024 05:01:01 PM Interpretation: Performing Lab: Notes/Report: Result: Neg P-Lipid Panel (Not yet revie wed by provider) Interpretation:LDL 90;HDL 51;TG 153 Performing Lab: Notes/Report: Test performed by [facility] [address] [place] [address] , [address], [place] [address] Remi Flores MD, Brass Wind Instrument Maker CLIA: [id number] Cholesterol 172 <200 mg/dL Triglycerides 153 <150 [...] Results: 90 Units: mg/dL % Change: -25% P-Comprehensive Metabolic Pa charlotte (CMP) (Not yet reviewed by provider) Interpretation:BS 102 Performing Lab: Notes/Report: Test performed by [facility] [address], [place] [address] Remi Flores MD, Brass Wind Instrument Maker CLIA: [id number] Sodium 140 135-145 mmol/L Potassium 4.2 3.5-5.3 [...] 0.7 <0.2-1.2 mg/dL A/G Ratio 1.6 1.1-2.5 CBC Venipuncture (in house) (Not yet reviewed [...] - 38 platlet 208 100 - 400 P-Lipid Panel Reviewed date:04/01/2024 10:49:57 AM Interpretation:chol 209, trigs 155, non-hdl 152 Performing Lab: Notes/Report: Test performed by [facility] [address] [place] [address] , [address] , [place] [address] Remi Flores MD, Brass Wind Instrument Maker CLIA: [id number] Cholesterol 209 <200 mg/dL Triglycerides 155 <150 [...] Results: 121 Units: mg/dL % Change: +21% X ray : Spine, lumbosacral Reviewed date:04/01/2024 10:49:58 AM Interpretation:mild degenerative change with arthropathy Performing Lab: Notes/Report: mild degenerative change with arthropathy P-Comprehensive Metabolic Pa charlotte (CMP) Reviewed date:04/01/2024 10:49:57 AM Interpretation:gluc 106 Performing Lab: Notes/Report: Test performed by [facility] [address] [facility] , [address], [place] [address] Remi Flores MD, Brass Wind Instrument Maker CLIA: [id number] Sodium 138 135-145 mmol/L Potassium 3.9 3.5-5.3 [...] <0.2-1.2 mg/dL A/G Ratio 1.7 1.1-2.5 mg/dL X ray : Spine, sacrum and co ccyx Reviewed date:02/10/2025 11:16:34 AM Interpretation:pt declined Performing Lab: Notes/Report: pt declined Medications Medication SIG (Take, Route, Frequency, Duration) Notes Start Date End Date Status Vitamin B-12 1000 MCG 1 tab(s) orally on ce a day; Duration: 30 day(s) 05/26/2015 Active Vitamin D3 1.25 MG (34974 UT) 1 cap(s) orally once a week; Duration: 84 Active Vitamin C 500 MG 1 tab(s) orally once a day; Duration: 30 day(s) Active Atorvastatin Calcium 20 mg TAKE ONE TABL [...] Vaccine Route Administration Date Status Comme nts xFluzone (6mos and older)-trivalent IM Intramuscular 09/21/2013 Administered xFluzone (6mos and older)-trivalent IM Intramuscular 06/28/2014 Administered Tetanus Tdap-Adacel (over 7yrs) IM Intramuscular 10/25/2024 Administered Shingrix IM Intramuscular 03/21/2025 Administered Fluzone Quad (6months&older) IM Intramuscular 09/18/2017 Administered Flublok IM Intramuscular 06/05/2020 Administered COVID 19 Pfizer Unknown 12/12/2020 Administered COVID 19 Pfizer Unknown 07/07/2021 Administered Problems Problem Type SNOMED Code ICD Code Onset Dates Problem Status W/U Status Risk Notes Problem Hyperlipidemia (89143133) Hyperlipidemia (272.4) Active confirmed Problem Hypertension (90185263) Hypertension NOS (401.9) Active confirmed Problem Mammogram (21100013) Mammogram (793.80) Active confirmed Problem Vitamin D deficiency (71778666) Vitamin D deficiency (E55.9) Active confirmed Problem Vitamin B12 deficiency (402985250) Vitamin B12 deficiency (E53.8) Active confirmed Problem Essential hypertension (38545641) Essential hypertension (I10) Active confirmed Problem Anxiety (43957903) Anxiety (F41.9) Active confirmed Problem Bilateral caroti d bruits (R09.89) Active confirmed Problem Seasonal allergic rhinitis (847226397) Other seasonal allergic rhinitis (J30.2) Active confirmed Problem Mixed hyperlipidemia (867841073) Mixed hyperlipidemia (E78.2) Active confirmed Problem Chronic pain (77863901) Other chronic pain (G89.29) Active confirmed Problem Uterine enlargement (252132150) Uterine enlargement (N85.2) Active confirmed Problem Pain in coccyx (finding) (55823307) Coccygeal pain (M53.3) Active confirmed Problem Aortic valve disorder (2541142) Aortic heart murmur (I35.8) Active confirmed Problem Arthralgia of the pelvic region and thigh (725681407) Hip pain, unspecified laterality (M25.559) Active confirmed Vital Signs Heart Rate 80 /min 03/21/2025 Blood pressure diastolic 60 mm Hg 03/21/2025 Height 67.50 in 03/21/2025 Blood pressure systolic 120 mm Hg 03/21/2025 Weight 223.2 lbs 03/21/2025 BMI 34.44 kg/m2 03/21/2025 Encounters Encounter Location Date Provider Diagnosis [facility] [address], [place] [id number] 03/25/2024 Jorden John Essential hypertensi on I10 ; Mixed hyperlipidemia E78.2 ; Other seasonal allergic rhinitis J30.2 ; Other chronic pain G89.29 and Low back pain, unspecified M54.50 [facility] [address] [facility] [address] [place], [place] [id number] 03/31/2024 Jorden John Essential hypertensi on I10 and Mixed hyperlipidemia E78.2 [facility] [address] [facility] [address] [place], [place] [phone] 05/24/2024 Jorden John Essential hypertensi on I10 [facility] [address] [facility] [address] [place], [place] [id number] 09/30/2024 Sima Salamanca Influenza A J10.1 [facility] [address] [place], [place] [id number] 10/25/2024 J Lc John Coccygeal pain M53.3 and Encounter for immunization Z23 [facility] [address] [facility] [address] [place], [place] [phone] 03/21/2025 Bianka Yuan Essential hypertensi on I10 ; Mixed hyperlipidemia E78.2 ; Other seasonal allergic rhinitis J30.2 ; Anxiety F41.9 ; Uterine enlargement N85.2 ; Encounter for vaccination Z23 and Cervical cancer screening Z12.4 [facility] [address] [place], [place] [id number] 04/01/2024 Jorden Lc John [facility] [address] [place], [place] [id number] 01/10/2025 Anastacio Bay Assessments Encounter Date Diagnosis (ICD Code) Assessment Notes Treatment Notes Treatment Clinical Notes Section Notes 03/25/2024 Essential hypertension (ICD-10 - I10) 03/31/2024 Essential hypertension (ICD-10 - I10) 03/31/2024 Mixed hyperlipidemia (ICD-10 - E78.2) 05/24/2024 Essential hypertension (ICD-10 - I10) continue current therapy 09/30/2024 Influenza A (ICD-10 - J10.1) Rest, fluids, tylenol or motrin for fevers. Home until fever free for 24-48 hours without the use of medication. 10/25/2024 Encounter for immunization (ICD-10 - Z23) 10/25/2024 Coccygeal pain (ICD-10 - M53.3) 03/21/2025 Essential hypertension (ICD-10 - I10) 03/25/2024 Mixed hyperlipidemia (ICD-10 - E78.2) 03/21/2025 Mixed hyperlipidemia (ICD-10 - E78.2) 03/21/2025 Other seasonal allergic rhinitis (ICD-10 - J30.2) 03/25/2024 Other seasonal allergic rhinitis (ICD-10 - J30.2) 03/25/2024 Other chronic pain (ICD-10 - G89.29) 03/21/2025 Anxiety (ICD-10 - F41.9) 03/25/2024 Low back pain, unspecified (ICD-10 - M54.50) 03/21/2025 Uterine enlargement (ICD-10 - N85.2) Given uterine enlargement and possible cyst on cervix will get a transvaginal US 03/21/2025 Encounter for vaccination (ICD-10 - Z23) preventive 03/21/2025 Cervical cancer screening (ICD-10 - Z12.4) Pap smear done today. Will call with results. Plan Of Treatment Pending Test Test Name Order Date CBC Venipuncture (in house) 03/21/2025 ultrasound : Transvaginal 03/21/2025 Mammogram 03/21/2025 P-Pap Test Thin Prep 03/21/2025 P-Comprehensive Metabolic Panel (CMP) P-Lipid Panel 03/21/2025 Insurance Providers Payer Name Payer Address Payer Phone Subscriber Number Group Number Insured Name Patient Relationship to Insured Coverage Start Date Coverage End Date [employer] [address] [place] [address] [id number] Daja Claudio Self - patient is the insured Medications Administered Medication Instructions Date of Administration Dosage Notes B-12 02/08/2014 1 mL B-12 02/21/2014 1 mL B-12 02/28/2014 1 mL B-12 03/07/2014 1 mL B-12 04/14/2014 1 mL B-12 05/19/2014 1 mL B-12 07/15/2014 1 mL Dexamethasone 07/30/2022 1 mL Medical (General) History Medical History History ICD Code Hypertension Hyperlipidemia Allergic Rhinitis Surgical History Surgery Date(Month/Year) D&C Esophageal scope for chest pain 03/17/20 colonoscopy, Dr. Silva, polyps 2022 Hospitalization History Reason Date(Month/Year)
--- OUTSIDE RECORDS SUMMARY | 2025-03-23 09:48 | XMS_ITS | Clinical Summary ---
Author Organization [facility] Address [address] [place] [address] Care Team Providers Care Behavioral Health Care Manager Name Role Phone Anastacio Bay MD Primary Care Provider + [phone] Allergies No known active allergies Medications atorvastatin (LIPITOR) 20 MG tablet Take 1 tablet by mouth Daily. 05/07/2023 Active escitalopram (LEXAPRO) 10 MG tablet Take 1 tablet by mouth Daily. 05/07/2023 Active loratadine (CLARITIN) 10 MG tablet Take 1 tablet by mouth Daily. 05/07/2023 Active metoprolol tartrate (LOPRESSOR) 25 MG tablet TAKE ONE TABLET BY MOUTH EVERY DAY --TAKE WITH FOOD-- 07/08/2023 Active thiamine (VITAMIN B-1) 100 MG tablet tablet Take 1 tablet by mouth Daily. Active Cholecalciferol 25 MCG (1000 UT) tablet Take 1 tablet by mouth Daily. Active coenzyme Q10 100 MG capsule Take 1 capsule by mouth As Needed. Active Family History Medical History Relation Name Comments Heart disease Father Heart failure Father Heart disease Mother Relation Name Status Comments Brother Father Mother Alive Sister 1 Alive Sister 2 Alive Social History Tobacco Use Types Packs/Day Years Used Date Smoking Tobacco: Never Smokeless Tobacco: Never Tobacco Cessation:Counseling Given: Not Answered Alcohol Use Standard Drinks/Week Comments Never 0 (1 standard drink = 0.6 oz pur e alcohol) Abuse Screen Answer Date Recorded Unsafe at Home or Work/School Not on file Feels Threatened by Someone? Not on file 04/2023 Does Anyone Keep You from Co ntacting Others or Doint Things Outside the Home? Not on file 06/02/2023 Physical Sign of Abuse Present Not on file 1 Housing Stability Answer Date Recorded Current Living Arrangements Not on file 04/2023 Potentially Unsafe Housing Conditions Not on robi e 06/02/2023 Family and Community Support Answer Scotty e Recorded Help with Day-to-Day Activities Not on file 06/02/2023 Lonely or Isolated Not on file 06/02/2023 Employment Answer Date Recorded Do you want help finding or keeping work or a salo b? Not on file 06/02/2023 Disabilities Answer Date Recorded Concentrating, Remembering, or Making Decisions Difficulty Not on file 06/02/2023 Doing Errands Independently Difficulty Not on fi le 06/02/2023 Education Answer Date Recorded Help with school or training? Not on file Preferred Language Not on file 06/02/2023 Comments Unknown Sex and Gender Information Value Date Recorded Sex Assigned at Not on file Legal Sex Female 11:50 AM EDT Gender Identity Not on file Sexual Orientation Not on file Last Filed Vital Signs Vital Sign Reading Time Taken Comments Blood Pressure 136/74 07/14/2023 1:47 PM EST Pulse 83 07/14/2023 1:47 PM EST Temperature - - Respiratory Rate - - Oxygen Saturation 97% 07/14/2023 1:47 PM EST Inhaled Oxygen Concentration - - Weight 98.9 kg (218 lb) 07/14/2023 1:47 PM EST Height 170.2 cm (5' 7 ) 07/14/2023 1:47 PM EST Body Mass Index 34.14 07/14/2023 1:47 PM EST Plan of Treatment Health Maintenance Due Date Last Done Comments Annual Gynecologic Pelvic an d Breast Exam 1965 LIPID PANEL 1965 TDAP/TD VACCINES (1 - Tdap) 11/08/1986 MAMMOGRAM 2007 COLOGUARD 11/08/2012 COLON CANCER SCREENING 5 YEA R SIGMOIDOSCOPY 11/08/2012 COLONOSCOPY 11/08/2012 COLORECTAL CANCER SCREENING 11/08/2012 CT COLONOGRAPHY 11/08/2012 FECAL OCCULT BLOOD TEST 11/08/2012 FIT Testing (1 year) 11/08/2012 Pneumococcal Vaccine 50+ (1 of 1 - PCV) 11/08/2017 ZOSTER VACCINE (1 of 2) 11/08/2017 ANNUAL PHYSICAL 07/10/2023 HEPATITIS C SCREENING 07/10/2023 COVID-19 Vaccine (4 - 2023-25 season) 2024 07/07/2021, 12/12/2020, 11/16/2020 INFLUENZA VACCINE 05/25/2025 09/18/2017 Insurance Care Teams Behavioral Health Care Manager Relationship Specialty Start Date End Date Anastacio Bay MD [address] [place] [id number] PCP - General Family Medicine 07/09/23
--- NOTE | 2025-03-23 09:52 | US_ITS ---
PROCEDURE: US TRANSVAGINAL CLINICAL INDICATION: UTERINE ENLARGEMENT COMPARISON: No exams were available for comparison FINDINGS: Transvaginal sonographic images of the pelvis were obtained. UTERUS: 8.1cm x 6.1 cmx 5.8 cm retroflexed and axial with a combined endometrial thickness of 7.2mm. There are a couple of small nabothian cysts in the cervix. There is a small anterior fibroid measuring 1.4 cm x 0.9 cm x 1.2 cm There is a 2nd small fibroid within the myometrium that measures 1.0 cm x 0.8 cm LEFT OVARY: 3.0cmx 2.6 cmx1.4cm with a volume of 5.8ml. RIGHT OVARY: 2.5 cmx 2.3cmx1.9 cm with a volume of 6ml. Both ovaries are seen and appear normal. Doppler flow to both ovaries are seen. There is no fluid in the cul-de-sac. IMPRESSION: 1. Retroflexed and axial uterus enlarged in size. The endometrium measures 7.2 mm. There are 2 small fibroids within the uterus measuring 1.4 cm and 1.0 cm. 2. Both ovaries are seen and appear atrophic. 3. No fluid in the cul-de-sac Dictated by: Domincik Bui MD 03/23/2025 15:10 Dominick Bui MD in [place] 03/23/2025 15:10
== END 2025-03-23 23:59 | disposition home or self-care (01) ==
PROVIDERS: PCP Nurse Practitioner Family; Visit Provider Nurse Practitioner Family
DX: N85.4 Malposition of uterus (principal); D25.9 Leiomyoma of uterus, unspecified; N83.312 Acquired atrophy of left ovary; N83.311 Acquired atrophy of right ovary; N85.2 Hypertrophy of uterus
CPT/HCPCS: 76830

== ENCOUNTER 2025-03-28 14:33 | Outpatient (CLI) | payer BC, SELFPAY ==
--- OUTSIDE RECORDS SUMMARY | 2024-09-30 11:30 | XMS_ITS ---
Author Organization [facility] Address [address] [place] [id number] Care Team Providers Care Rn Endocrinology Name Role Phone Anastacio Bay Primary Care Provider Sima Salamanca Unavailable [phone] Allergies No Known Allergies Results Component Value Reference Range Notes Influenza Screen (in house) Reviewed date:09/30/2024 05:01:10 PM Interpretation: Performing Lab: Notes/Report: results Pos A Covid test (in house) Reviewed date:09/30/2024 05:01:01 PM Interpretation: Performing Lab: Notes/Report: Result: Neg REASON FOR VISIT cough,low grade fever Medications Medication SIG (Take, Route, Frequency, Duration) Notes Start Date End Date Status Tamiflu 75 MG 1 capsule Orally Twi ce a day; Duration: 5 day(s) 09/30/2024 Active Promethazine-DM 6.25-15 MG/5ML 5 ml as needed Orally every 6 hrs, prn 09/30/2024 Active CeleBREX 200 MG 1 capsule with food Orally Once a day; Duration: 30 day(s) Active Losartan Potassium-HCTZ 50-12.5 MG 1 tablet Orally Once a day; Duration: 30 day(s) Active Atorvastatin Calcium 20 mg 1 tablet Oral ly once daily; Duration: 90 days Active Vitamin C 500 MG 1 tab(s) orally once a day; Duration: 30 day(s) Active Metoprolol Tartrate 25 mg 1 tab(s) Orall y once daily Active Vitamin B-12 1000 MCG 1 tab(s) orally on ce a day; Duration: 30 day(s) 05/26/2015 Active Vitamin D3 1.25 MG (07978 UT) 1 cap(s) orally once a week; Duration: 84 Active Escitalopram Oxalate 10 mg 1 tablet Oral ly once daily; Duration: 90 days Active Fluticasone Propionate 50 MCG/ACT 1 spray in each nostril Nasally Once a day; Duration: 30 day(s) 03/25/2024 Active Fexofenadine HCl 180 MG 1 tablet swallow whole with water; do not take with fruit juices. Orally Once a day; Duration: 30 day(s) 03/25/2024 Active Vital Signs Weight 221 lbs 09/30/2024 Blood pressure systolic 140 mm Hg 09/30/19 25 Blood pressure diastolic 78 mm Hg 025 Heart Rate 115 /min 09/30/2024 Height 67.50 in 09/30/2024 BMI 34.10 kg/m2 09/30/2024 Encounters Encounter Location Date Provider Diagnosis [facility] [address] [facility] [address] [place] [id number] 09/30/2024 Sima Salamanca Influenza A J10. 1 Assessments Encounter Date Diagnosis (ICD Code) Assessment Notes Treatment Notes Treatment Clinical Notes Section Notes 09/30/2024 Influenza A (ICD-10 - J10.1) Rest, fluids, tylenol or motrin for fevers. Home until fever free for 24-48 hours without the use of medication. Plan Of Treatment Medication Medication Name Sig Start Date Stop Date Notes Tamiflu 75 MG 1 capsule Orally Twi ce a day; Duration: 5 day(s) 09/30/2024 Promethazine-DM 6.25-15 MG/5ML 5 ml as n eeded Orally every 6 hrs, prn 09/30/2024 Treatment Notes Assessment Notes Influenza A Rest, fluids, tyleno l or motrin for fevers. Home until fever free for 24-48 hours without the use of medication. Next Appt Details Follow Up: prn, Reason: Progress Notes * Renate CLAUDIOOB:[birth year] (59 yo F)Acc No.[id number]:09/30/2024 Progress Notes Patient: Daja RAYMUNDO Provider: ISHAAN Stephenson :1965 A ge:58 Y S ex:Female Date:09/30/2024 Address:[address] [place], [place] [id number] Pcp:Anastacio Bay Subjective: * Chief Complaints: * 1 . Cough,low grade fever. * HPI: E NT/respiratory: 58 year old female presents with c/o cough P t complains of dry without any sputum production cough that started yesterday morning. Associated with low grade fever and bodyaches . * ROS: D ERMATOLOGY: no R bradley. [...] day , Taking Vitamin D3 1.25 MG (78407 UT) Capsule 1 cap(s) orally once a week , Taking Vitamin C 500 MG Tablet 1 tab(s) orally once a day , Taking Metoprolol Tartrate 25 mg Tablet 1 tab(s) Orally once daily , Taking Escitalopram Oxalate [...] Allergies: N .K.D.A. Objective: * Vitals: W t:221, Temp:99.9, BP:140/78, HR:115, O2 Sat:96% on RA, Nurse:garcia, Ht: 67.50, BMI:34.10. * Examination: E NT/Respiratory: General Appearance: N AD. E ars: a uditory canals normal bilaterally, TM's WNL. N ose : turbinates red, congested. S inuses : non tender bilaterally. O ral cavity : erythema without exudate on pharynx. N nicanor : n o cervical lymphadenopathy. H eart : R RR, normal S1 S2, no murmurs. L ungs: c lear to auscultation bilaterally. Assessment: * Assessment: 1. I cherry Dueñas - J10.1 (Primary) Plan: * Treatment: Value Reference Range r esults Pos A * Tenisha Nolan 09/30/2024 4:02:21 PM > , Provider reviewed results while patient in office.Sima Salamanca 09/30/2024 5:01:05 PM > ?LAB: Covid test (in house) (Collection Date & Time - 09/30/2024)* Value Reference Range R esult: Neg Tenisha Long 09/30/2024 4:02:53 PM > , Provider reviewed results while patient in office.Sima Salamanca 09/30/2024 5:00:57 PM > Notes: Rest, fluids, tylenol or motrin for fevers. Home until fever free for 24- 48 hours without the use of medication.?? * Procedure Codes: 9 4760 [place], [address] Flu Test- Nasal Swab, Modifiers: QW , 92645 COVID TEST IN HOUSE, Modifiers: QW , 3077F SYST BP = 140 MM HG6 IT, 3078F DIAST BP < 80 MM HG * Follow Up: p rn * Images: Billing Information: * Visit Code: 01126 Office Visit, Est Pt., Level 3. * Procedure Codes: [address] [place]. [address] Flu Test- Nasal Swab. Modifiers: QW 20698 COVID TEST IN HOUSE. Modifiers: QW 3077F SYST BP = 140 MM HG6 IT. 3078F DIAST BP < 80 MM HG. * Electronic signature of ISHAAN Manriquez on 03/28/2025 at 02:39 PM EDT Sign off status: Pending * Provider: ISHAAN Stephenson Date: 0 09/30/2024 Generated for Monique pastor/Summer/eTransmitting on: 0 03/28/2025 02:39 PM EDT History and Physical Notes * HPI (History of Present Illness) Category Sub-Category Detail Notes Category Not es ENT/respiratory cough Pt complains of dry without any sputum production cough that started yesterday morning. Associated with low grade fever and bodyaches Examination Category Sub-Category Detail Notes Category Not es ENT/Respiratory Oral cavity : erythema without exudate on pharynx Sinuses : non tender bilateral ly Ears: auditory canals norm al bilaterally, TM's WNL Neck : no cervical lymphade nopathy Heart : RRR, normal S1 S2, n o murmurs Lungs: clear to auscultatio n bilaterally General Appearance: NAD Nose : turbinates red, sylvain ested
--- OUTSIDE RECORDS SUMMARY | 2024-10-25 12:00 | XMS_ITS ---
Author Organization [facility] Address [address] [place] [phone] Care Team Providers Care Dining Car Waiter/Waitress Name Role Phone [place] IslandAnastacio rand Primary Care Provider Jorden John Unavailable [phone] Allergies No Known Allergies Results Component Value [...] 30 day(s) Active Vitamin D3 1.25 MG (34345 UT) 1 cap(s) orally once a week; Duration: 84 Active Vitamin B-12 1000 MCG 1 tab(s) orally on ce a day; Duration: 30 day(s) 05/26/2015 Active Immunizations Vaccine Route Administration Date Status Comme nts Tetanus Tdap-Adacel (over 7yrs) IM Intramuscular 10/25/2024 Administered Problems Problem Type SNOMED Code ICD Code Onset Dates Problem Status W/U Status Risk Notes Problem Pain in coccyx (finding) (62702219) Coccygeal pain (M53.3) Active confirmed Vital Signs Weight 223.0 lbs 10/25/2024 Blood pressure systolic 122 mm Hg 10/26/19 25 Blood pressure diastolic 76 mm Hg 025 Heart Rate 81 /min 10/25/2024 Height 67.50 in 10/25/2024 BMI 34.41 kg/m2 10/25/2024 Encounters Encounter Location Date Provider Diagnosis [facility] [address] [place] [phone] 10/25/2024 Jorden John Coccygeal pain M53.3 and [...] * Renate CLAUDIOOB:[birth year] (59 yo F)Acc No.[id number]:10/25/2024 Progress Notes Patient: Daja RAYMUNDO Provider: Jorden John M.D. :1965 A ge:58 Y S ex:Female Date:10/25/2024 Address:[address] [place] [address] [id number] Pcp:Anastacio Bay Subjective: * Chief Complaints: * [...] day , Taking Vitamin D3 1.25 MG (87158 UT) Capsule 1 cap(s) orally once a [...] * Images: Billing Information: * Visit Code: 87442 Office Visit, Est Pt., Level 3. * Procedure Codes: 3074F SYST BP LT 130 MM HG. 3078F DIAST BP < 80 MM HG. * Electronic signature of Jorden John MD on 03/28/2025 at 02:39 PM EDT Sign off status: Pending * Provider: Jorden John M.D. Date: 10/25/2024 Generated for Monique pastor/Summer/Abidasmitting on: 03/28/2025 02:39 PM EDT History and Physical Notes * HPI (History of Present Illness) Category Sub-Category Detail Notes Category Not es Cardiology Short of Breath Chest Pain Palpitations Dizziness
--- OUTSIDE RECORDS SUMMARY | 2025-03-21 06:00 | XMS_ITS ---
Author Organization [facility] Address [address] [place] [id number] Care Team Providers Care Manager Molecular Name Role Phone Anastacio Bay Primary Care Provider Bianka Yuan Unavailable [phone] Allergies No Known Allergies Results Component Value [...] and other clinical and laboratory findings. See [email or web address] for further information. Test performed by [facility] d/b/[facility], [address] [place] [address] , [address], [place] [address], Jose Quevedo DO, Bone Tender, [facility]# [id number] P-Pap Test Thin Prep Reviewed date:03/23/2025 01:22:07 [...] This specimen has been analyzed by the [employer] Imaging System, an interactive computer system which assists the lab in the screening of ThinPrep Pap Test slides. Following imaging, the slide was reviewed by a Ranch Manager and/or Pathologist. Cervical cytology is a screening test primarily for squamous cancers and precursors and has associated false-negative and false-positive results. New technologies such as liquid-based preparations may decrease but will not eliminate all false-negative results. Regular sampling and follow-up of unexplained clinical signs and symptoms are recommended to minimize false negative results. End of Report Technical services provided by [facility] [employer], [facility], [facility]a [facility] [address] [place] [address] , [place] [address] Frank Rowe MD, Bone Tender. Case reviewed and diagnosis rendered at [facility] [employer], [facility], d/b/a [place] [address] [place] [address] Josh Rasheed, [place] [address] Frank Rowe MD, Bone Tender. CONFIDENTIAL P-Comprehensive Metabolic Pa charlotte (CMP) Reviewed date:03/23/2025 01:22:36 PM Interpretation:BS 102 Performing Lab: Notes/Report: Test performed by [facility] [address] [place] [address] Josh Rasheed, [address], [place] [address] Remi Flores MD, Bone Tender CLIA: [id number] Sodium 140 135-145 mmol/L Potassium 4.2 3.5-5.3 [...] 153 Performing Lab: Notes/Report: Test performed by [facility] [address] , [address], [place] [address] Remi Flores MD, Bone Tender CLIA: [id number] Cholesterol 172 <200 mg/dL Triglycerides 153 <150 [...] day(s) 05/26/2015 Active Vitamin D3 1.25 MG (58598 UT) 1 cap(s) orally once a week; [...] Provider Diagnosis [facility] [address] [facility] [address] [place] [id number] 03/21/2025 Bianka Yuan Essential hypertensi on I10 [...] * Renate CLAUDIOOB:[birth year] (59 yo F)Acc No.[id number]:03/21/2025 Progress Notes Patient: Daja RAYMUNDO Provider: THERESA Pierre :1965 A ge:59 Y S ex:Female Date:03/21/2025 Address:[address] [place], [place] [address] [id number] Pcp:Anastacio Bay Subjective: * Chief Complaints: * [...] History: H ypertension, Hyperlipidemia, Allergic Rhinitis. 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 [...] day , Taking Vitamin D3 1.25 MG (71422 UT) Capsule 1 cap(s) orally once a [...] p latlet 208 100 - 400 * Kisha Jo 03/21/2025 1 2:07:27 PM EDT >Bianka Yuan [...] EDT > no auth required; CPT code 95259; faxed to [facility] Bianka Collier 03/24/2025 10:06:26 AM EDT >see [...] PV High Risk NOT DETECTED - * [facility], IT support 03/23/2025 11:20:07 : This order was created by the Interface.Bianka Yuan 03/23/2025 01:17:44 PM EDT >I spoke with pt and reported results * Procedure Codes: 8 5025 CBC WITH AUTO DIFF, 45393 VENIPUNCT, ROUTINE*, 3074F SYST BP LT 130 MM HG, 3078F DIAST BP < 80 MM HG * Images: Billing Information: * Visit Code: 18976 Preventive Care Est Pt Age 40-64. * Procedure Codes: 00366 CBC WITH AUTO DIFF. 54568 VENIPUNCT, ROUTINE*. 3074F SYST BP LT 130 MM HG. 3078F DIAST BP < 80 MM HG. 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
--- NOTE | 2025-03-28 14:35 | MM_ITS ---
PROCEDURE INFORMATION: Exam: MG Bilateral Screening 3D Mammography Exam date and time: 03/28/2025 2:51 PM Age: 59 years old Clinical indication: Screening examination TECHNIQUE: Imaging protocol: Bilateral Screening tomosynthesis and 2D mammography including computer-aided detection (CAD) when performed. COMPARISON: 1. MG MM DIG SCREENING MAMM BI W/CAD 02/04/2024 7:48 AM 2. MG DMSB DIGITAL MAMM-SCREEN BILATERAL 10/12/2012 4:29 PM FINDINGS: MAMMOGRAPHY: Breast composition: The breasts are almost entirely fatty. Mass: None. Architectural distortion: None. Calcifications: No suspicious calcifications. Asymmetric density: None. Skin thickening: None. Axillary adenopathy: None. IMPRESSION: No mammographic evidence of malignancy. Annual screening is recommended unless otherwise clinically indicated. ASSESSMENT: BI-RADS Category 1: Negative.
--- OUTSIDE RECORDS SUMMARY | 2025-03-28 14:40 | XMS_ITS | Patient Health Record ---
[facility] Organization [facility] Address [address] [facility] [address] [place] [id number] Care Team Providers Care Cheese Pancake Roller Name Role Phone Anastacio Bay Primary Care Provider [phone] Jorden John Unavailable [phone] Bianka Yuan Unavailable [phone] CheikhSima Unavailable [phone] Allergies No Known Allergies Results Component Value Reference Range Notes P-Comprehensive Metabolic Pa charlotte (CMP) Reviewed date:04/01/2024 10:49:57 AM Interpretation:gluc 106 Performing Lab: Notes/Report: Test performed by [facility] [address] [place] [address] , [address], [place] [address] Remi Flores MD, Card Grader CLIA: [id number] Sodium 138 135-145 mmol/L Potassium 3.9 3.5-5.3 [...] <0.2-1.2 mg/dL A/G Ratio 1.7 1.1-2.5 mg/dL Influenza Screen (in house) Reviewed date:09/30/2024 05:01:10 PM Interpretation: Performing Lab: Notes/Report: results Pos A Covid test (in house) Reviewed date:09/30/2024 05:01:01 PM Interpretation: Performing Lab: Notes/Report: Result: Neg P-Pap Test Thin Prep Reviewed date:03/23/2025 01:22:07 PM Interpretation:Negative Performing Lab: Notes/Report: Pap Test Thin Prep Negative for Intraepithelial Lesion or Malignancy Source: Cervical/Endocervical LMP: October Date Taken: 03/21/2025 Specimen Type: ThinPrep Vial Date [...] This specimen has been analyzed by the ThinPrep Imaging System, an interactive computer system which assists the lab in the screening of ThinPrep Pap Test slides. Following imaging, the slide was reviewed by a Experience Specialist and/or Pathologist. Cervical cytology is a screening test primarily for squamous cancers and precursors and has associated false-negative and false-positive results. New technologies such as liquid-based preparations may decrease but will not eliminate all false-negative results. Regular sampling and follow-up of unexplained clinical signs and symptoms are recommended to minimize false negative results. End of Report Technical services provided by [facility], [facility], d/b/a [address] , [place] [address] Frank Rowe MD, Card Grader. Case reviewed and diagnosis rendered at [facility], [facility], d/b/a [facility] , [place] [address] Frank Rowe MD, Card Grader. CONFIDENTIAL P-Comprehensive Metabolic Pa charlotte (CMP) Reviewed date:03/23/2025 01:22:36 PM Interpretation:BS 102 Performing Lab: Notes/Report: Test performed by [facility] [address] , [address], [place] [address] Remi Flores MD, Card Grader CLIA: [id number] Sodium 140 135-145 mmol/L Potassium 4.2 3.5-5.3 [...] 153 Performing Lab: Notes/Report: Test performed by [facility], [address] , [address], [place] [address] Remi Flores MD, Card Grader CLIA: [id number] Cholesterol 172 <200 mg/dL Triglycerides 153 <150 [...] date:03/24/2025 11:11:14 AM Interpretation: Performing Lab: Notes/Report: CBC Venipuncture (in house) Reviewed date:03/23/2025 01:23:34 [...] 152 Performing Lab: Notes/Report: Test performed by [facility], [address] [place] , [place] [address] Remi Flores MD, Card Grader CLIA: [id number] Cholesterol 209 <200 mg/dL Triglycerides 155 <150 [...] ATPIII guidelines LDL/HDL Ratio 2.1 <3.3 Ratio ____ LDL Cholesterol Patient History ____ Test Date: 03/12/2023 LDL Results: 100 Units: mg/dL % Change: - ---- Test Date: 03/31/2024 LDL Results: 121 Units: mg/dL % Change: +21% ____ X ray : Spine, sacrum and co ccyx Reviewed date:02/10/2025 11:16:34 AM Interpretation:pt declined Performing Lab: Notes/Report: pt declined HPV High Risk Screen (TMA) Reviewed date:03/23/2025 01:21:36 PM Interpretation:Negative Performing Lab: Notes/Report: HPV High Risk NOT DETECTED The human papillomavirus (HPV) High Risk Screen is an FDA-approved in-vitro amplified nucleic acid test for the qualitative detection of E6/E7 viral mRNA. Results should be correlated with patient presentation, history, cervical cytology and other clinical and laboratory findings. See https://www.[email or web address] /sites/default/files/20 [email or web address].p d f for further information. Test performed by [facility], [facility] d/b/a [facility], [address] [place] [address] , [facility], [place] [address], Jose Quevedo DO, Card Grader, [facility]# [id number] Medications Medication SIG (Take, Route, Frequency, Duration) Notes Start Date End Date Status Vitamin B-12 1000 MCG 1 tab(s) orally on ce a day; Duration: 30 day(s) 05/26/2015 Active Vitamin D3 1.25 MG (68374 UT) 1 cap(s) orally once a week; [...] Vaccine Route Administration Date Status Comme nts COVID 19 Pfizer Unknown 12/12/2020 Administered COVID 19 Pfizer Unknown 07/07/2021 Administered Flublok IM Intramuscular 06/05/2020 Administered Fluzone Quad (6months&older) IM Intramuscular 09/18/2017 Administered Shingrix IM Intramuscular 03/21/2025 Administered Tetanus Tdap-Adacel (over 7yrs) IM Intramuscular 10/25/2024 Administered xFluzone (6mos and older)-trivalent IM Intramuscular 09/21/2013 Administered xFluzone (6mos and older)-trivalent IM Intramuscular 06/28/2014 Administered Problems Problem Type SNOMED Code ICD Code Onset Dates Problem Status W/U Status Risk Notes Problem Hyperlipidemia (55399495) Hyperlipidemia (272.4) Active confirmed Problem Hypertension (42718933) Hypertension NOS (401.9) Active confirmed Problem Mammogram (48552338) Mammogram (793.80) Active confirmed Problem Vitamin D deficiency (02701067) Vitamin D deficiency (E55.9) Active confirmed Problem Vitamin B12 deficiency (066382093) Vitamin B12 deficiency (E53.8) Active confirmed Problem Essential hypertension (90775160) Essential hypertension (I10) Active confirmed Problem Anxiety (61843791) Anxiety (F41.9) Active confirmed Problem Bilateral caroti d bruits (R09.89) Active confirmed Problem Seasonal allergic rhinitis (861471099) Other seasonal allergic rhinitis (J30.2) Active confirmed Problem Mixed hyperlipidemia (006884340) Mixed hyperlipidemia (E78.2) Active confirmed Problem Chronic pain (39749925) Other chronic pain (G89.29) Active confirmed Problem Uterine enlargement (473585314) Uterine enlargement (N85.2) Active confirmed Problem Pain in coccyx (finding) (21320608) Coccygeal pain (M53.3) Active confirmed Problem Aortic valve disorder (4607962) Aortic heart murmur (I35.8) Active confirmed Problem Endometrium thickened (finding) (279766966) Endometrial thickening on ultrasound (R93.89) Active confirmed Problem Arthralgia of the pelvic region and thigh (913086538) Hip pain, unspecified laterality (M25.559) Active confirmed Vital Signs Heart Rate 80 /min 03/21/2025 Blood pressure diastolic 60 mm Hg 03/21/2025 Height 67.50 in 03/21/2025 Blood pressure systolic 120 mm Hg 03/21/2025 Weight 223.2 lbs 03/21/2025 BMI 34.44 kg/m2 03/21/2025 Encounters Encounter Location Date Provider Diagnosis [facility] [address] [facility] [address] [place], [place] [id number] 03/31/2024 Jorden John Essential hypertensi on I10 and Mixed hyperlipidemia E78.2 [facility] [address] [facility] [address] [place], [place] [id number] 05/24/2024 Jorden John Essential hypertensi on I10 [facility] [address] [facility] [address] [place], [place] [id number] 09/30/2024 Sima Cheikh Influenza A J10.1 [facility] [address] [facility] [address] [place], [place] [id number] 10/25/2024 Jorden John Coccygeal pain M53.3 and Encounter for immunization Z23 [facility] [address] [facility] [address] [place], [place] [id number] 03/21/2025 Bianka Yuan Essential hypertensi on I10 ; Mixed hyperlipidemia E78.2 ; Other seasonal allergic rhinitis J30.2 ; Anxiety F41.9 ; Uterine enlargement N85.2 ; Encounter for vaccination Z23 and Cervical cancer screening Z12.4 [facility] [address] [place], [place] [id number] 04/01/2024 Jorden John [facility] [address] [facility] [address] [place], [place] [id number] 01/10/2025 Anastacio [place] [facility] [address] [place], [place] [id number] 03/24/2025 Bianka Yuan Assessments Encounter Date Diagnosis (ICD Code) Assessment [...] M53.3) 03/21/2025 Essential hypertension (ICD-10 - I10) 03/21/2025 [...] Treatment Pending Test Test Name Order Date Mammogram 03/21/2025 Insurance Providers Payer Name Payer Address Payer Phone Subscriber Number Group Number Insured Name Patient Relationship to Insured Coverage Start Date Coverage End Date [employer] [address] [place] [address] [phone] [id number] Daja Claudio Self - patient is [...]
--- OUTSIDE RECORDS SUMMARY | 2025-03-28 14:40 | XMS_ITS | Clinical Summary ---
Author Organization [facility] Address [address] [place] [address] Care Team Providers Care Retail Assistant Store Manager Name Role Phone Anastacio Bay MD Primary Care Provider + [phone] Allergies No known active allergies Medications atorvastatin [...] INFLUENZA VACCINE 05/25/2025 09/18/2017 Insurance Care Teams Retail Assistant Store Manager Relationship Specialty Start Date End Date Anastacio Bay MD [address] [place] [id number] PCP - General Family Medicine 07/09/23
== END 2025-03-28 23:59 | disposition home or self-care (01) ==
LOC: RAD 14:33
PROVIDERS: PCP Family Medicine; Visit Provider Family Medicine
DX: Z12.31 Encounter for screening mammogram for malignant neoplasm of breast (principal)
CPT/HCPCS: 77063; 77067

== ENCOUNTER 2025-06-20 14:31 | Outpatient (CLI) | payer BC, SELFPAY ==
--- OUTSIDE RECORDS SUMMARY | 2024-02-05 09:45 | XMS_ITS ---
[facility] Address [address] [place] [id number] Care Team Providers Care Research Recruiter Name Role Phone Anastacio Bay Primary Care Provider [phone] Jorden John Unavailable [phone] Allergies No Known Allergies Results Component Value Reference Range Notes P-Antinuclear Antibodies (AN A) Screen Reviewed date:02/11/2024 08:54:38 AM Interpretation: Normal Performing Lab: Notes/Report: Test performed by [facility]) [address] [place], [place] [address] , [address], [place] [address] Remi Flores MD, Electrostatic Paint Operator CLIA: [id number] Antinuclear Antibodies (CELSO) Screen Negative Negative Test performed by [employer] Generation[employer] Bead Immunoassay methodology. P-Sed Rate (ESR) Reviewed date:02/11/2024 08:54:38 AM Interpretation: Normal Performing Lab: Notes/Report: Test performed by [facility]) [address] [place] [address] [address], [place] [address] Remi Flores MD, Electrostatic Paint Operator CLIA: [id number] Erythrocyte Sedimentation Ra te (ESR), Automated 9 <31 mm/hr P-Rheumatoid Arthritis Compr ehensive Reviewed date:02/11/2024 08:54:38 AM Interpretation: Normal Performing Lab: Notes/Report: Test performed by [facility]) [address] [place], [place] [address], [facility] [address], [place] [address] Remi Flores MD, Electrostatic Paint Operator CLIA: [id number] C-Reactive Protein (CRP) 0.21 <0.50 mg/dL CCP Antibodies <0.5 <0.5-3.0 U/mL Rheumatoid Factor, IgM Negative Negative Rheumatoid Factor, IgG Negative Negative Rheumatoid Factor, IgA Negative Negative P-Uric Acid Reviewed date:02/11/2024 08:54:38 AM Interpretation: Normal Performing Lab: Notes/Report: Test performed by [facility], [address] , [address], [place] [address] Remi Flores MD, Electrostatic Paint Operator CLIA: [id number] Uric Acid 4.4 2.4-7.0 mg/dL P-CELSO Reviewed date:02/11/2024 08:53:07 AM Interpretation: Performing Lab: Notes/Report: X ray : Hip, bilateral Reviewed date:02/11/2024 08:54:38 AM Interpretation:Negative Performing Lab: Notes/Report: Negative X ray : Hip, bilateral Reviewed date:02/11/2024 08:54:38 AM Interpretation:Negative Performing Lab: Notes/Report: Negative Echocardiogram Reviewed date:03/03/2024 12:47:56 PM Interpretation:mild MR, RVSP 25-30 Performing Lab: Notes/Report: mild MR, RVSP 25-30 Carotid Duplex Reviewed date:03/01/2024 12:13:05 PM Interpretation:Negative Performing Lab: Notes/Report: Negative REASON FOR VISIT f/u on hip Medications Medication SIG (Take, Route, Frequency, Duration) Notes Start Date End Date Status Escitalopram Oxalate 10 mg 1 tablet Oral ly once daily; Duration: 90 days Active Atorvastatin Calcium 20 mg 1 tablet Oral ly once daily; Duration: 90 days Active CeleBREX 200 MG 1 capsule with food Orally Once a day; Duration: 30 day(s) 02/05/2024 Active Losartan Potassium-HCTZ 50-12.5 MG 1 tablet Orally Once a day; Duration: 30 day(s) 02/05/2024 Active Metoprolol Tartrate 25 mg TAKE ONE TABLE T BY MOUTH EVERY DAY --TAKE WITH FOOD--; Duration: 30 Active Loratadine 10 mg TAKE ONE TABLET BY M OUTH EVERY DAY; Duration: 90 Active Vitamin D3 1.25 MG (05078 UT) 1 cap(s) orally once a week; Duration: 84 Active Vitamin C 500 MG 1 tab(s) orally once a day; Duration: 30 day(s) Active Vitamin B-12 1000 MCG 1 tab(s) orally on ce a day; Duration: 30 day(s) 05/26/2015 Active Problems Problem Type SNOMED Code ICD Code Onset Dates Problem Status W/U Status Risk Notes Problem Arthralgia of the pelvic region and thigh (173788425) Hip pain, unspecified laterality (M25.559) Active confirmed Problem Bilateral carotid bruits (R09.89) Active confirmed Problem Aortic valve disorder (6481884) Aortic heart murmur (I35.8) Active confirmed Vital Signs Weight 221.6 lbs 02/05/2024 Blood pressure systolic 126 mm Hg 02/05/20 24 Blood pressure diastolic 76 mm Hg 024 Heart Rate 82 /min 02/05/2024 Height 67.50 in 02/05/2024 BMI 34.19 kg/m2 02/05/2024 Encounters Encounter Location Date Provider Diagnosis [facility] [address] [facility] [address] [facility] [address], [place] [id number] 02/05/2024 Jorden John Hip pain, unspecifie d laterality M25.559 ; Bilateral carotid bruits R09.89 ; Aortic heart murmur I35.8 and Essential hypertension I10 Assessments Encounter Date Diagnosis (ICD Code) Assessment Notes Treatment Notes Treatment Clinical Notes Section Notes 02/05/2024 Hip pain, unspecified laterality (ICD-10 - M25.559) 02/05/2024 Bilateral carotid bruits (ICD-10 - R09.89) 02/05/2024 Aortic heart murmur (ICD-10 - I35.8) 02/05/2024 Essential hypertension (ICD-10 - I10) Plan Of Treatment Medication Medication Name Sig Start Date Stop Date Notes CeleBREX 200 MG 1 capsule with food Orally Once a day; Duration: 30 day(s) 02/05/2024 Lisinopril-hydroCHLOROthiazi de 10-12.5 MG 1 tab(s) orally once a day Losartan Potassium-HCTZ 50-1 2.5 MG 1 tablet Orally Once a day; Duration: 30 day(s) 02/05/2024 Next Appt Details Follow Up: 6 Weeks, Reason: Progress Notes * Renate CLAUDIOOB:[birth year] (59 yo F)Acc No.[id number]:02/05/2024 Patient: Garrison ALANISDaja Provider: Jorden John M.D. :1965 A ge:58 Y S ex:Female Date:02/05/2024 Address:[address] [place] [address] [id number] Pcp:Anastacio Bay Subjective: * Chief Complaints: * 1 . F/u on hip. * HPI: H ip/Thigh: The pt is here for a follow up on bilateral hip pain. Pt states she did do PT but that did not help much. Pt states the pain worse with sitting on hard surfaces. Pt states she has also had a persistent cough since starting on Lisinopril. 58 year old female presents with c/o hip pain. * ROS: D ERMATOLOGY: no R bradley. n o H sweetie. G ASTROENTEROLOGY: no N ausea. n o V omiting. n o D iarrhea.? U ROLOGY: no D ifficulty urinating. n o B lood in urine. * Medical History: H ypertension, Hyperlipidemia, Allergic Rhinitis. * Surgical History: C -Section , D&C , Esophageal scope for chest pain 03/17/2006. * Family History: F ather: alive. M other: alive. 2 sister(s) . 2 son(s) , 1 daughter(s) . . uncle and Dad have had CABG's. * Social History: C URRENT TOBACCO USE S moking Status: Patient does NOT smoke. C affeine: no. Marital Status: . Past smoking status: no. Alcohol: no. * Medications: T aking Vitamin B-12 1000 MCG Tablet 1 tab(s) orally once a day , Taking Vitamin D3 1.25 MG (60126 UT) Capsule 1 cap(s) orally once a week , Taking Vitamin C 500 MG Tablet 1 tab(s) orally once a day , Taking Metoprolol Tartrate 25 mg Tablet TAKE ONE TABLET BY MOUTH EVERY DAY --TAKE WITH FOOD-- , Taking Loratadine 10 mg Tablet TAKE ONE TABLET BY MOUTH EVERY DAY , Taking Escitalopram Oxalate 10 mg Tablet 1 tablet Orally once daily , Taking Atorvastatin Calcium 20 mg Tablet 1 tablet Orally once daily , Taking Lisinopril-hydroCHLOROthiazide 10-12.5 MG Tablet 1 tab(s) orally once a day , Discontinued hydrOXYzine HCl 10 MG Tablet 1 tab(s) orally 2 times a day as needed , Medication List reviewed and reconciled with the patient * Allergies: N .K.D.A. Objective: * Vitals: W t:221.6, Temp:98.2, BP:126/76, HR:82, Nurse:HANSA, Ht: 67.50, BMI:34.19. * Examination: G eneral Examination: General Appearance: N AD. H EENT: u nremarkable.?Oral cavity: n o lesions, mucosa moist and WNL, no erythema. N nicanor: s upple, no lymphadenopathy, carotid bruit, right, carotid bruit, left. C hest: n ormal shape and expansion. Heart: R SR, aortic murmur. L ungs: c lear to auscultation. N eurologic Exam:?Intact, gait normal. S kin: n ormal, no rash. P eripheral pulses: n ormal (2+) bilaterally. E xtremities: n o leg edema, some osteoarthritic changes of the knees. ? Assessment: * Assessment: 1. H ip pain, unspecified laterality - M25.559 (Primary) 2 . B ilateral carotid bruits - R09.89 3 . A ortic heart murmur - I35.8 4 . E ssential hypertension - I10 Plan: * Treatment: Value Reference Range E rythrocyte Sedimentation Rate (ESR), Automated 9 <31 - mm/hr * Lvainia Woody 02/11/2024 8:53: 44 AM > pt informed ?LAB: P-Rheumatoid Arthritis Comprehensive (Collection Date & Time - 02/05/2024 01:48 PM)?Normal* Value Reference Range C CP Antibodies <0.5 <0.5-3.0 - U/mL * C -Reactive Protein (CRP) 0.21 <0.50 - mg/dL * R heumatoid Factor, IgA Negative Negative - * R heumatoid Factor, IgG Negative Negative - * R heumatoid Factor, IgM Negative Negative - * Lavinia Woody 02/11/2024 8:53: 44 AM > pt informed ?LAB: P-Uric Acid (Collection Date & Time - 02/05/2024 01:48 PM)?Normal* Value Reference Range U madelin Acid 4.4 2.4-7.0 - mg/dL * Lavinia Woody 02/11/2024 8:53: 44 AM > pt informed ?LAB: P-CELSO (Collection Date & Time - 02/11/2024)* see duplicate order ?Imaging: X ray : Hip, bilateral (Performed Date - 02/09/2024)?Negative* Cheryl Myers 02/05/2024 2:57 :11 PM > printed and gave to patient Lavinia Woody 02/11/2024 8:53:44 AM > pt informed 2.?Bilateral carotid bruits?Imaging: Carotid Duplex (Performed Date - 02/25/2024)?Negative* Magui De La Torre 02/06/2024 11:22 :23 AM >submitted to [facility] for pre-auth; anticipated determination date is 02/09/2024Magui De La Torre 02/10/2024 8:54:29 AM > test not authorized; if ordering provider would like to discuss, contact Magui Juarez 02/16/2024 10:41:51 AM > insurance denied; see Magui Henry 02/17/2024 10:32:26 AM > auth# [id number], valid 02/17/2024 through 03/17/2024; CPT [id number] De La Torre 02/17/2024 10:46:33 AM > [facility] 02/25/2024 at 08:00am; pt informed; order faMarilu Fernandez 03/01/2024 12:11:43 PM > pt informed of result and requests the result of her ECHO as well 3.?Aortic heart murmur?Imaging: Echocardiogram (Performed Date - 02/13/2024)?mild MR, RVSP 25-30* Magui De La Torre 02/06/2024 11:21 :42 AM > auth# [id number], valid 02/06/2024 through 03/06/2024, CPT 72830; [facility] 02/13/2024 at 09:45am; pt informed; order Nata Rosales 03/03/2024 12:47:50 PM > See phone encounter 4.?Essential hypertension? Stop Lisinopril-hydroCHLOROthiazide Tablet, 10-12.5 MG, 1 tab(s), orally, once a day;?Start Losartan Potassium-HCTZ Tablet, 50-12.5 MG, 1 tablet, Orally, Once a day, 30 day(s), 30, Refills 3. ? * Labs: * L ab: P-Antinuclear Antibodies (CELSO) Screen (Collection Date & Time - 02/05/2024 01:48 PM) N ormal Value Reference Range A ntinuclear Antibodies (CELSO) Screen Negative Negat brock - * [facility], IT support 02/10/2024 03:50:05 : This order was created by the Interface. AnnaliseLavinia 02/11/2024 8:53:44 AM > pt informed * Follow Up: 6 Weeks * Images: Billing Information: * Visit Code: 99757 Office Visit, Est Pt., Level 4. * Procedure Codes: * Electronic signature of Jorden John MD on 06/20/2025 at 03:18 PM EDT Sign off status: Pending * Provider: Jorden John M.D. Date: 0 02/05/2024 Generated for Jsi ng/Summer/eTransmitting on: 1 03:18 PM EDT History and Physical Notes * HPI (History of Present Illness) Category Sub-Category Detail Notes Category Not es Hip/Thigh hip pain Examination Category Sub-Category Detail Notes Category Not es General Examination HEENT: unremarkable Heart: RSR, aortic murmur Lungs: clear to auscultatio n Extremities: no leg edema, some o steoarthritic changes of the knees General Appearance: NAD Skin: normal, no rash Neurologic Exam: Intact, gait normal Neck: supple, no lymphaden opathy, carotid bruit, right, carotid bruit, left Oral cavity: no lesions, mucosa m oist and WNL, no erythema Peripheral pulses: normal (2+) bilatera lly Chest: normal shape and exp ansion
--- OUTSIDE RECORDS SUMMARY | 2024-03-25 12:15 | XMS_ITS ---
[facility] Address [address] [facility] [address] [place] [id number] Care Team Providers Care Utility Porter Name Role Phone Phu Anastacio Primary Care Provider Jorden John Unavailable [phone] Allergies No Known Allergies Results Component Value Reference Range Notes X ray : Spine, lumbosacral Reviewed date:04/01/2024 10:49:58 AM Interpretation:mild degenerative change with arthropathy Performing Lab: Notes/Report: mild degenerative change with arthropathy REASON FOR VISIT 6 weeks Medications Medication SIG (Take, Route, Frequency, Duration) Notes Start Date End Date Status Atorvastatin Calcium 20 mg 1 tablet Oral ly once daily; Duration: 90 days Active CeleBREX 200 MG 1 capsule with food Orally Once a day; Duration: 30 day(s) 02/05/2024 Active Losartan Potassium-HCTZ 50-12.5 MG 1 tablet Orally Once a day; Duration: 30 day(s) 02/05/2024 Active Metoprolol Tartrate 25 mg 1 tab(s) Orall y once daily Active Escitalopram Oxalate 10 mg 1 tablet Oral ly once daily; Duration: 90 days Active Fexofenadine HCl 180 MG 1 tablet swallow whole with water; do not take with fruit juices. Orally Once a day; Duration: 30 day(s) 03/25/2024 Active Fluticasone Propionate 50 MCG/ACT 1 spray in each nostril Nasally Once a day; Duration: 30 day(s) 03/25/2024 Active Vitamin B-12 1000 MCG 1 tab(s) orally on ce a day; Duration: 30 day(s) 05/26/2015 Active Vitamin D3 1.25 MG (87388 UT) 1 cap(s) orally once a week; Duration: 84 Active Vitamin C 500 MG 1 tab(s) orally once a day; Duration: 30 day(s) Active Problems Problem Type SNOMED Code ICD Code Onset Dates Problem Status W/U Status Risk Notes Problem Chronic pain (18498490) Other chronic pain (G89.29) Active confirmed Vital Signs Weight 220.2 lbs 03/25/2024 Blood pressure systolic 126 mm Hg 03/25/20 24 Blood pressure diastolic 84 mm Hg 024 Heart Rate 90 /min 03/25/2024 Height 67.50 in 03/25/2024 BMI 33.98 kg/m2 03/25/2024 Encounters Encounter Location Date Provider Diagnosis [facility] [address] [place], [place] [id number] 03/25/2024 Jorden John Essential hypertensi on I10 ; Mixed hyperlipidemia E78.2 ; Other seasonal allergic rhinitis J30.2 ; Other chronic pain G89.29 and Low back pain, unspecified M54.50 Assessments Encounter Date Diagnosis (ICD Code) Assessment Notes Treatment Notes Treatment Clinical Notes Section Notes 03/25/2024 Essential hypertension (ICD-10 - I10) 03/25/2024 Mixed hyperlipidemia (ICD-10 - E78.2) 03/25/2024 Other seasonal allergic rhinitis (ICD-10 - J30.2) 03/25/2024 Other chronic pain (ICD-10 - G89.29) 03/25/2024 Low back pain, unspecified (ICD-10 - M54.50) Plan Of Treatment Medication Medication Name Sig Start Date Stop Date Notes Fexofenadine HCl 180 MG 1 tablet swallow whole with water; do not take with fruit juices. Orally Once a day; Duration: 30 day(s) 03/25/2024 Fluticasone Propionate 50 MCG/ACT 1 spray in each nostril Nasally Once a day; Duration: 30 day(s) 03/25/2024 Loratadine 10 mg TAKE ONE TABLET BY M OUTH EVERY DAY Next Appt Details Follow Up: 2 Months fasting, Reason: Progress Notes * Darryl CLAUDIOJoséOB:[birth year] (59 yo F)Acc No.[id number]:03/25/2024 Progress Notes Patient: Daja RAYMUNDO Provider: Jorden John M.D. :1965 A ge:58 Y S ex:Female Date:03/25/2024 Address:[address] [place] [address] [id number] Pcp:Anastacio Bay Subjective: * Chief Complaints: * 1 . 6 weeks. * HPI: C ardiology: The patient is here for a check up on Hypertension. Pt states she does check her BP at home and it has been running 130's/70's. Pt states she would like to discuss the echo and carotid duplex. See pt docs. Pt states she would also like to discuss changing to a different allergy medications. Pt states the Loratadine is not helping any more. Denies : Chest Pain. D enies : Short of Breath. D enies : Dizziness. D enies : Palpitations. H ip/Thigh: The pt is here for a follow up on bilateral hip pain. Pt states she had xrays done about six weeks ago. see pt docs. Pt states when she gets up from sitting she has to push herself up with her hands. Pt would like to discuss her recent lab work for arthritis. See pt labs. c/o hip pain. * ROS: D ERMATOLOGY: [...] day , Taking Vitamin D3 1.25 MG (13983 UT) Capsule 1 cap(s) orally once a week , Taking Vitamin C 500 MG Tablet 1 tab(s) orally once a day , Taking Metoprolol Tartrate 25 mg Tablet 1 tab(s) Orally once daily , Taking Loratadine 10 mg Tablet 1 tablet Orally once daily , Taking Escitalopram Oxalate 10 mg Tablet 1 tablet Orally once daily , Taking Atorvastatin Calcium 20 mg Tablet 1 tablet Orally once daily , Taking CeleBREX 200 MG Capsule 1 capsule with food Orally Once a day , Taking Losartan Potassium-HCTZ 50-12.5 MG Tablet 1 tablet Orally Once a day , Medication List reviewed and reconciled with the patient * Allergies: N .K.D.A. Objective: * Vitals: W t:220.2, Temp:98.1, BP:126/84, HR:90, Nurse:HANSA, Ht: 67.50, BMI:33.98. * Examination: G eneral Examination: General Appearance: [...] the knees. ? Assessment: * Assessment: 1. E ssential hypertension - I10 (Primary) 2 . M ixed hyperlipidemia - E78.2 3 . O ther seasonal allergic rhinitis - J30.2 4 . O ther chronic pain - G89.29 5 . L ow back pain, unspecified - M54.50 Plan: * Treatment: 2. L ow back pain, unspecified I maging: X ray : Spine, lumbosacral (Performed Date - 03/31/2024) m ild degenerative change with arthropathy * Follow Up: 2 Months fasting * Images: Billing Information: * Visit Code: 92224 Office Visit, Est Pt., Level 3. * Procedure Codes: * Electronic signature of Jorden John MD on 06/20/2025 at 03:18 PM EDT Sign off status: Pending * Provider: Jorden John M.D. Date: 0 03/25/2024 Generated for Jsi dawit/Summer/Marceloitting on: 03:18 PM EDT History and Physical Notes * HPI (History of Present Illness) Category Sub-Category Detail Notes Category Not es Cardiology Short of Breath Chest Pain Palpitations Dizziness Hip/Thigh hip pain Examination Category Sub-Category Detail [...]
--- OUTSIDE RECORDS SUMMARY | 2024-03-31 08:15 | XMS_ITS ---
Author Organization [facility] Address [address] [facility] [address] [place] [id number] Care Team Providers Care Websphere Developer Name Role Phone Anastacio Bay Primary Care Provider [phone] Jorden John Unavailable [phone] Results Component Value Reference Range Notes P-Comprehensive Metabolic Pa charlotte (CMP) Reviewed date:04/01/2024 10:49:57 AM Interpretation:gluc 106 Performing Lab: Notes/Report: Test performed by [facility] [address] [place] [address] , [address], [place] [address] Remi Flores MD, Sewing Department Supervisor CLIA: [id number] Sodium 138 135-145 mmol/L Potassium 3.9 3.5-5.3 mmol/L Chloride 104 97-108 mmol/L CO2 22 22-32 mmol/L Glucose 106 65-99 mg/dL BUN 17 6-20 mg/dL Creatinine 0.74 0.50-1.00 mg/dL Calcium 9.4 8.6-10.4 mg/dL eGFR by Creatinine 95 >59 mL/min/1.73m2 Protein 7.4 6.0-8.3 g/dL Albumin 4.7 3.5-5.3 g/dL Alkaline Phosphatase 101 35-121 IU/L ALT (SGPT) 34 <5-47 IU/L AST (SGOT) 25 <5-40 IU/L Bilirubin, Total 0.7 <0.2-1.2 mg/dL A/G Ratio 1.7 1.1-2.5 mg/dL P-Lipid Panel Reviewed date:04/01/2024 10:49:57 AM Interpretation:chol 209, trigs 155, non-hdl 152 Performing Lab: Notes/Report: Test performed by [facility] [address] [facility] [place] [address], [place] [address] Remi Flores MD, Sewing Department Supervisor MIKEL: [id number] Cholesterol 209 <200 mg/dL Triglycerides 155 <150 mg/dL HDL Cholesterol 57 >39 mg/dL Cholesterol / HDL Ratio 3.67 0.00-4.44 Ratio Non-HDL Cholesterol 152 <130 mg/dL LDL Cholesterol (Calculation) 121 <130 mg/dL LDL Cholesterol Levels* Less than 100 mg/dL Optimal 100 to 129 mg/dL Near Optimal/ Above Optimal 130 to 159 mg/dL Borderline High 160 to 189 mg/dL High 190 mg/dL and above Very High * Categories as recommended by the 2004 ATPIII guidelines LDL/HDL Ratio 2.1 <3.3 Ratio LDL Cholesterol Patient History Test Date: 03/12/2023 LDL Results: 100 Units: mg/dL % Change: - Test Date: 03/31/2024 LDL Results: 121 Units: mg/dL % Change: +21% REASON FOR VISIT blood work Encounters Encounter Location Date Provider Diagnosis [facility] [address] [place] [id number] 03/31/2024 Jorden John Essential hypertensi on I10 and Mixed hyperlipidemia E78.2 Assessments Encounter Date Diagnosis (ICD Code) Assessment Notes Treatment Notes Treatment Clinical Notes Section Notes 03/31/2024 Essential hypertension (ICD-10 - I10) 03/31/2024 Mixed hyperlipidemia (ICD-10 - E78.2) Plan Of Treatment No Information Progress Notes * Renate CLAUDIOOB:[birth year] (59 yo F)Acc No.[id number]:03/31/2024 Patient: Daja RAYMUNDO Provider: Jorden John M.D. :1965 A ge:58 Y S ex:Female Date:03/31/2024 Address:[address] [place], [place] [id number] Pcp:Anastacio Bay Subjective: * Chief Complaints: * 1 . Blood work. * Medical History: Objective: * Vitals: Assessment: * Assessment: 1. E ssential hypertension - I10 (Primary) 2 . M ixed hyperlipidemia - E78.2 Plan: * Treatment: Value Reference Range A /G Ratio 1.7 1.1-2.5 - mg/dL * A lbumin 4.7 3.5-5.3 - g/dL * A lkaline Phosphatase 101 35-121 - IU/L * A LT (SGPT) 34 <5-47 - IU/L * A ST (SGOT) 25 <5-40 - IU/L * B ilirubin, Total 0.7 <0.2-1.2 - mg/dL * B UN 17 6-20 - mg/dL * C alcium 9.4 8.6-10.4 - mg/dL * C hloride 104 97-108 - mmol/L * C O2 22 22-32 - mmol/L * C reatinine 0.74 0.50-1.00 - mg/dL * G lucose 106 H 65-99 - mg/dL * P otassium 3.9 3.5-5.3 - mmol/L * S odium 138 135-145 - mmol/L * P rotein 7.4 6.0-8.3 - g/dL * e GFR by Creatinine 95 >59 - mL/min/1.73m2 * Lavinia Woody 04/01/2024 10:49: 48 AM >See phone encounter 2.?Mixed hyperlipidemia?LAB: P-Lipid Panel (Collection Date & Time - 03/31/2024 11:30 AM)?chol 209, trigs 155, non-hdl 152* Value Reference Range C holesterol / HDL Ratio 3.67 0.00-4.44 - Ratio * C holesterol 209 H <200 - mg/dL * H DL Cholesterol 57 >39 - mg/dL * L DL Cholesterol (Calculation) 121 <130 - mg/d L * L DL/HDL Ratio 2.1 <3.3 - Ratio * N on-HDL Cholesterol 152 H <130 - mg/dL * T riglycerides 155 H <150 - mg/dL * Lavinia Woody 04/01/2024 10:49: 48 AM >See phone encounter * Images: Billing Information: * Visit Code: * Procedure Codes: * Electronic signature of Jorden John MD on 06/20/2025 at 03:18 PM EDT Sign off status: Pending * Provider: Jorden John M.D. Date: 0 03/31/2024 Generated for Monique pastor/Summer/eTransmitting on: 1 03:18 PM EDT
--- OUTSIDE RECORDS SUMMARY | 2024-05-24 07:45 | XMS_ITS ---
Author Organization [facility] Address [address] [facility] [address] [place] [id number] Care Team Providers Care Manager Fraud Name Role Phone Phu Anastacio Primary Care Provider Jorden John Unavailable [phone] Allergies No Known Allergies REASON FOR VISIT 2 mo ck up fasting, Needs labs, Tdap, & shingles vaccine Medications Medication SIG (Take, Route, Frequency, Duration) Notes Start Date End Date Status Vitamin D3 1.25 MG (89900 UT) 1 cap(s) orally once a week; Duration: 84 Active Vitamin C 500 MG 1 tab(s) orally once a day; Duration: 30 day(s) Active Metoprolol Tartrate 25 mg 1 tab(s) Orall y once daily Active CeleBREX 200 MG 1 capsule with food Orally Once a day; Duration: 30 day(s) 02/05/2024 Active Losartan Potassium-HCTZ 50-12.5 MG 1 tablet Orally Once a day; Duration: 30 day(s) 02/05/2024 Active Fexofenadine HCl 180 MG 1 tablet swallow whole with water; do not take with fruit juices. Orally Once a day; Duration: 30 day(s) 03/25/2024 Active Vitamin B-12 1000 MCG 1 tab(s) orally on ce a day; Duration: 30 day(s) 05/26/2015 Active Atorvastatin Calcium 20 mg 1 tablet Oral ly once daily; Duration: 90 days Active Fluticasone Propionate 50 MCG/ACT 1 spray in each nostril Nasally Once a day; Duration: 30 day(s) 03/25/2024 Active Escitalopram Oxalate 10 mg 1 tablet Oral ly once daily; Duration: 90 days Active Vital Signs Weight 218.6 lbs 05/24/2024 Blood pressure systolic 142 mm Hg 05/24/20 24 Blood pressure diastolic 80 mm Hg 024 Heart Rate 74 /min 05/24/2024 Height 67.50 in 05/24/2024 BMI 33.73 kg/m2 05/24/2024 Encounters Encounter Location Date Provider Diagnosis [facility] [address] [place] [phone] 05/24/2024 Jorden John Essential hypertensi on I10 Assessments Encounter Date Diagnosis (ICD Code) Assessment Notes Treatment Notes Treatment Clinical Notes Section Notes 05/24/2024 Essential hypertension (ICD-10 - I10) continue current therapy Plan Of Treatment Treatment Notes Assessment Notes Essential hypertension continue current therapy Next Appt Details Follow Up: 5 months, Reason: Progress Notes * Renate CLAUDIOOB:[birth year] (59 yo F)Acc No.[id number]:05/24/2024 Progress Notes Patient: Daja RAYMUNDO Provider: Jorden John M.D. :1965 A ge:58 Y S ex:Female Date:05/24/2024 Address:[address] [place], [place] [id number] Pcp:Anastacio Bay Subjective: * Chief Complaints: * 1 . 2 mo ck up fasting. 2. Needs labs, Tdap, & shingles vaccine. * HPI: C ardiology: The patient is here for a check up on Hypertension and Hyperlipidemia. Pt states she is doing good and denies any new concerns. Pt states she is fasting. Denies : Chest Pain. D enies : Short of Breath. D enies : Dizziness. D enies : Palpitations. L ower back: LS spine x-rays reviewed. * ROS: D ERMATOLOGY: no R bradley. [...] no. Alcohol: no. * Medications: T aking Fluticasone Propionate 50 MCG/ACT Suspension 1 spray in each nostril Nasally Once a day , Taking Fexofenadine HCl 180 MG Tablet 1 tablet swallow whole with water; do not take with fruit juices. Orally Once a day , Taking Vitamin B-12 1000 MCG Tablet 1 tab(s) orally once a day , Taking Vitamin D3 1.25 MG (68012 UT) Capsule 1 cap(s) orally once a week , Taking Vitamin C 500 MG Tablet 1 tab(s) orally once a day , Taking Metoprolol Tartrate 25 mg Tablet 1 tab(s) Orally once daily , Taking CeleBREX 200 MG Capsule 1 capsule with food Orally Once a day , Taking Losartan Potassium-HCTZ 50-12.5 MG Tablet 1 tablet Orally Once a day , Taking Escitalopram Oxalate 10 mg Tablet 1 tablet Orally once daily , Taking Atorvastatin Calcium 20 mg Tablet 1 tablet Orally once daily , Medication List reviewed and reconciled with the patient * Allergies: N .K.D.A. Objective: * Vitals: W t:218.6, Temp:98.2, BP:142/80, HR:74, Nurse:HANSA, Ht: 67.50, Repeat BP:136/76, BMI:33.73. * Examination: G eneral Examination: General Appearance: [...] Assessment: 1. E ssential hypertension - I10 Plan: * Treatment: * Follow Up: 5 months * Images: Billing Information: * Visit Code: 92756 Office Visit, Est Pt., Level 3. * Procedure Codes: * Electronic signature of Jorden John MD on 06/20/2025 at 03:19 PM EDT Sign off status: Pending * Provider: Jorden John M.D. Date: 0 05/24/2024 Generated for Printi ng/Faalexig/eTransmitting on: 03:19 PM EDT History and Physical Notes * HPI (History of Present Illness) Category Sub-Category Detail Notes Category Not es Cardiology Short of Breath Chest Pain Palpitations Dizziness Examination Category Sub-Category Detail Notes Category Not [...]
--- OUTSIDE RECORDS SUMMARY | 2024-09-30 11:30 | XMS_ITS ---
Author Organization [facility] Address [address] [place] [phone] Care Team Providers Care Rn New Graduate Name Role Phone Anastacio Bay Primary Care Provider [phone] Sima Salamanca Unavailable [phone] Allergies No Known Allergies Results Component Value [...] day(s) 05/26/2015 Active Vitamin D3 1.25 MG (74715 UT) 1 cap(s) orally once a week; [...] Provider Diagnosis [facility] [address] [facility] [address] [place] [phone] 09/30/2024 Sima Salamanca Influenza A J10. 1 [...] * Renate CLAUDIOOB:[birth year] (59 yo F)Acc No.[id number]:09/30/2024 Progress Notes Patient: Daja RAYMUNDO Provider: ISHAAN Stephenson :1965 A ge:58 Y S ex:Female Date:09/30/2024 Address:[address] [place], [place] [id number] Pcp:Anastacio Bay Subjective: * Chief Complaints: * [...] day , Taking Vitamin D3 1.25 MG (45902 UT) Capsule 1 cap(s) orally once a [...] * Procedure Codes: 9 4760 [place], [address] Flu Test- Nasal Swab, Modifiers: QW , 17470 COVID TEST IN HOUSE, Modifiers: QW , 3077F SYST BP = 140 MM HG6 IT, 3078F DIAST BP < 80 MM HG * Follow Up: p rn * Images: Billing Information: * Visit Code: 68531 Office Visit, Est Pt., Level 3. * Procedure Codes: [address] [place]. [address] Flu Test- Nasal Swab. Modifiers: QW 00275 COVID TEST IN HOUSE. Modifiers: QW 3077F SYST BP = 140 MM HG6 IT. 3078F DIAST BP < 80 MM HG. * Electronic signature of ISHAAN Manriquez on 06/20/2025 at 03:19 PM EDT Sign off status: Pending * Provider: ISHAAN Stephenson Date: 0 09/30/2024 Generated for Monique pastor/Summer/eTransmitting on: 1 03:19 PM EDT History and Physical Notes [...]
--- OUTSIDE RECORDS SUMMARY | 2024-10-25 12:00 | XMS_ITS ---
Author Organization [facility] Address [address] [place] [phone] Care Team Providers Care Aquatics Specialist Name Role Phone OgdenAnastacio rand Primary Care Provider [phone] Jorden John Unavailable [phone] Allergies No Known Allergies Results Component Value [...] 30 day(s) Active Vitamin D3 1.25 MG (96284 UT) 1 cap(s) orally once a week; Duration: 84 Active Vitamin B-12 1000 MCG 1 tab(s) orally on ce a day; Duration: 30 day(s) 05/26/2015 Active Immunizations Vaccine Route Administration Date Status Comme nts Tetanus Tdap-Adacel (over 7yrs) IM Intramuscular 10/25/2024 Administered Problems Problem Type SNOMED Code ICD Code Onset Dates Problem Status W/U Status Risk Notes Problem Pain in coccyx (finding) (59527993) Coccygeal pain (M53.3) Active confirmed Vital Signs Weight 223.0 lbs 10/25/2024 Blood pressure systolic 122 mm Hg 10/26/19 25 Blood pressure diastolic 76 mm Hg 025 Heart Rate 81 /min 10/25/2024 Height 67.50 in 10/25/2024 BMI 34.41 kg/m2 10/25/2024 Encounters Encounter Location Date Provider Diagnosis [facility] [address] [place] [phone] 10/25/2024 Jorden John Coccygeal pain M53.3 and [...] * Renate CLAUDIOOB:[birth year] (59 yo F)Acc No.[id number]:10/25/2024 Progress Notes Patient: Daja RAYMUNDO Provider: Jorden John M.D. :1965 A ge:58 Y S ex:Female Date:10/25/2024 Address:[address] [place] [address] [id number] Pcp:Anastacio Bay Subjective: * Chief Complaints: * [...] scope for chest pain 03/17/2006, colonoscopy, Dr. iSlva, polyps 2022. * Family History: F ather: [...] day , Taking Vitamin D3 1.25 MG (40541 UT) Capsule 1 cap(s) orally once a [...] * Images: Billing Information: * Visit Code: 21716 Office Visit, Est Pt., Level 3. * Procedure Codes: 3074F SYST BP LT 130 MM HG. 3078F DIAST BP < 80 MM HG. * Electronic signature of Jorden John MD on 06/20/2025 at 03:19 PM EDT Sign off status: Pending * Provider: Jorden John M.D. Date: 0 10/25/2024 Generated for Monique pastor/Summer/Abidasmitting on: 1 03:19 PM EDT History and Physical Notes * HPI (History of Present Illness) Category Sub-Category Detail Notes Category Not es Cardiology Short of Breath Chest Pain Palpitations Dizziness
--- OUTSIDE RECORDS SUMMARY | 2025-03-21 06:00 | XMS_ITS ---
[facility] Address [address] [place] [id number] Care Team Providers Care Rehabilitation Services Coordinator Name Role Phone Anastacio Bay Primary Care Provider Bianka Yuan Unavailable [phone] Allergies No Known Allergies Results Component Value Reference Range Notes CBC Venipuncture (in house) Reviewed date:03/23/2025 01:23:34 PM Interpretation: Performing Lab: Notes/Report: wbc 5.6 3.5 - 10 lymph 21.0 15 - 50 mid 5.8 2 - 15 gran 73.2 35 - 80 rbc 4.56 3.5 - 5.5 hgb 13.4 11.5 - 16.5 hct 39.3 35 - 55 mcv 86.1 75 - 100 mch 29.4 25 - 35 mchc 34.1 31 - 38 platlet 208 100 - 400 HPV High Risk Screen (TMA) Reviewed date:03/23/2025 01:21:36 PM Interpretation:Negative Performing Lab: Notes/Report: HPV High Risk NOT DETECTED The human papillomavirus (HPV) High Risk Screen is an FDA-approved in-vitro amplified nucleic acid test for the qualitative detection of E6/E7 viral mRNA. Results should be correlated with patient presentation, history, cervical cytology and other clinical and laboratory findings. See https://[email or web address].com /sites/default/files/[email or web address] d f for further information. Test performed by [facility], [address] [place] [address] , [address], [place] [address], Jose Quevedo DO, Medicine Technologist, [facility]# [id number] P-Pap Test Thin Prep Reviewed date:03/23/2025 01:22:07 PM Interpretation:Negative Performing Lab: Notes/Report: Pap Test Thin Prep Negative for Intraepithelial Lesion or Malignancy Source: Cervical/Endocervical LMP: October Taken: 03/21/2025 Specimen Type: ThinPrep Vial Date Reported: 03/23/2025 Clinical Data: Last Pap: wnl (2020) Cytotech: EVELIN Lopez(ASCP) Date Reported: 03/23/2025 Specimen Adequacy: Satisfactory for evaluation Endocervical/transforma tion zone component present General Categorization: NEGATIVE FOR INTRAEPITHELIAL LESION OR MALIGNANCY The following tests have been ordered as requested and a separate report will be issued: HPV High Risk Screen (TMA) This specimen has been analyzed by the [employer] Imaging System, an interactive computer system which assists the lab in the screening of ThinPrep Pap Test slides. Following imaging, the slide was reviewed by a Bleach Machine Operator and/or Pathologist. Cervical cytology is a screening test primarily for squamous cancers and precursors and has associated false-negative and false-positive results. New technologies such as liquid-based preparations may decrease but will not eliminate all false-negative results. Regular sampling and follow-up of unexplained clinical signs and symptoms are recommended to minimize false negative results. End of Report Technical services provided by [facility], [facility], d/b/a [facility] [address] [place] [address] , [place] [address] Frank Rowe MD, Medicine Technologist. Case reviewed and diagnosis rendered at [facility], [facility], d/b/a [place] [address] [place] [address] Josh Rasheed, [place] [address] Frank Rowe MD, Medicine Technologist. CONFIDENTIAL P-Comprehensive Metabolic Pa [place] (CMP) Reviewed date:03/23/2025 01:22:36 PM Interpretation:BS 102 Performing Lab: Notes/Report: Test performed by [facility] [address] [place] [address] Josh Rasheed, [address], [place] [address] Remi Flores MD, Medicine Technologist CLIA: [id number] Sodium 140 135-145 mmol/L Potassium 4.2 3.5-5.3 [...] mg/dL A/G Ratio 1.6 1.1-2.5 P-Lipid Panel Reviewed date:03/23/2025 01:23:03 PM Interpretation:LDL 90;HDL 51;TG 153 Performing Lab: Notes/Report: Test performed by [facility], [address] , [address], [place] [address] Remi Flores MD, Medicine Technologist CLIA: [id number] Cholesterol 172 <200 mg/dL Triglycerides 153 <150 [...] ATPIII guidelines LDL/HDL Ratio 1.8 <3.3 Ratio ____ LDL Cholesterol Patient History ____ Test Date: 03/12/2023 LDL Results: 100 Units: mg/dL % Change: - ---- Test Date: 03/31/2024 LDL Results: 121 Units: mg/dL % Change: +21% ---- Test Date: 03/21/2025 LDL Results: 90 Units: mg/dL % Change: -25% ____ ultrasound : Transvaginal Reviewed date:03/24/2025 11:11:14 AM Interpretation: Performing Lab: Notes/Report: REASON FOR VISIT pap smear, Needs labs, [...] day(s) 05/26/2015 Active Vitamin D3 1.25 MG (08041 UT) 1 cap(s) orally once a week; [...] W/U Status Risk Notes Problem Uterine enlargement ([id number]) Uterine enlargement (N85.2) Active confirmed Vital Signs Weight 223.2 lbs 03/21/2025 Blood pressure systolic 120 mm Hg 03/21/20 25 Blood pressure diastolic 60 mm Hg 025 Heart Rate 80 /min 03/21/2025 Height 67.50 in 03/21/2025 BMI 34.44 kg/m2 03/21/2025 Encounters Encounter Location Date Provider Diagnosis [facility] [address], [place] [id number] 03/21/2025 Bianka Yuan Essential hypertensi on I10 [...] smear done today. Will call with results. Progress Notes * Renate CLAUDIOOB:[birth year] (59 yo F)Acc No.[id number]:03/21/2025 Progress Notes Patient: Daja RAYMUNDO Provider: THERESA Pierre :1965 A ge:59 Y S ex:Female Date:03/21/2025 Address:[address] [place] [address] GAIL BLACKMON [id number] Pcp:Anastacio Bay Subjective: * Chief Complaints: * [...] History: H ypertension, Hyperlipidemia, Allergic Rhinitis. 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 [...] day , Taking Vitamin D3 1.25 MG (80931 UT) Capsule 1 cap(s) orally once a [...] Temp: 98.0, BP: 120/60, HR: 80, Nurse: pe, Ht: 67.50, BMI:34.44. * Examination: G eneral [...] GFR by Creatinine 101 >59 - mL/min/1.73m2 * Bianka Yuan 03/23/2025 01:22:16 PM EDT >I spoke with pt and reported results 2.?Mixed hyperlipidemia? Continue Atorvastatin Calcium Tablet, 20 [...] T riglycerides 153 H <150 - mg/dL * Bianka Yuan 03/23/2025 01:22:47 PM EDT >I spoke with pt and reported results ?LAB: CBC Venipuncture (in house) (Collection Date [...] Jo Beard 03/21/2025 1 2:07:27 PM EDT >Bianka Yuan 03/23/2025 01:23:12 PM EDT >I spoke with pt and reported results 3.?Other seasonal allergic rhinitis? Continue Fluticasone Propionate Suspension, 50 MCG/ACT, 1 spray in each nostril, Nasally, Once a day;?Continue GNP Fexofenadine HCl Tablet, 180 mg, TAKE ONE TABLET BY MOUTH EVERY DAY with water.DO not take with fruit juices..??4.?Anxiety ? Continue Escitalopram Oxalate Tablet, 10 mg, TAKE ONE TABLET BY MOUTH ONCE DAILY.??5.?Uterine enlargement?Imaging: ultrasound : Transvaginal (Performed Date - 03/23/2025)* Magui De La Torre 03/21/2025 11:2 3:21 AM EDT > no auth required; CPT code 07717; faxed to [facility] Bianka Collier 03/24/2025 10:06:26 AM EDT >see encounter Notes: Given uterine enlargement and possible cyst on cervix will get a transvaginal US??6.?Encounter for vaccination? Notes: preventive??7.?Cervical cancer screening?LAB: P-Pap Test Thin Prep (Collection Date & Time - 03/21/2025 10:20 AM)? Negative* Value Reference Range P ap Test Thin Prep Negative for Intraepithelial Lesion or Malignancy - * Bianka Yuan 03/23/2025 01:21:45 PM EDT >I spoke with pt and reported results Notes: Pap smear done today. Will call with results.?? * Immunizations: Shingrix : 0.5 (Route: Intramuscular) given by VERNA Chan on Left Arm (Encounter for vaccination) * Labs: * L ab: HPV High Risk Screen (TMA) (Collection Date & Time - 03/21/2025 10:20 AM) N egative Value Reference Range H PV High Risk NOT DETECTED - * [facility], IT support 03/23/2025 11:20:07 : This order was created by the Interface.Bianka Yuan 03/23/2025 01:17:44 PM EDT >I spoke with pt and reported results * Procedure Codes: 8 5025 CBC WITH AUTO DIFF, 43926 VENIPUNCT, ROUTINE*, 3074F SYST BP LT 130 MM HG, 3078F DIAST BP < 80 MM HG * Images: Billing Information: * Visit Code: 91759 Preventive Care Est Pt Age 40-64. * Procedure Codes: 48014 CBC WITH AUTO DIFF. 58114 VENIPUNCT, ROUTINE*. 3074F SYST BP LT 130 MM HG. 3078F DIAST BP < 80 MM HG. 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
--- OUTSIDE RECORDS SUMMARY | 2025-04-08 06:45 | XMS_ITS ---
Author [facility] [address] [facility] [address] [place] [phone] Care Team Providers Care Financial Reporting Advisor Name Role Phone Anastacio Bay Primary Care Provider [phone] Sima Salamanca Unavailable [phone] Allergies No Known Allergies REASON FOR VISIT bilateral foot pain Medications Medication SIG (Take, Route, Frequency, Duration) Notes Start Date End Date Status GNP Fexofenadine HCl 180 mg TAKE ONE TABLET BY MOUTH EVERY DAY with water. DO not take with fruit juices. Active Atorvastatin Calcium 20 mg TAKE ONE TABLET BY MOUTH ONCE DAILY Not-Taking Promethazine-DM 6.25-15 MG/5ML 5 ml as needed Orally every 6 hrs, prn 09/30/2024 Not-Taking Fluticasone Propionate 50 MCG/ACT 1 spray in each nostril Nasally Once a day 03/25/2024 Active Escitalopram Oxalate 10 mg TAKE ONE TABLET BY MOUTH ONCE DAILY Active Vitamin B-12 1000 MCG 1 tab(s) orally on ce a day; Duration: 30 day(s) 05/26/2015 Active Medrol 4 MG as directed Orally 04/08/2025 Active Vitamin C 500 MG 1 tab(s) orally once a day; Duration: 30 day(s) Active Vitamin D3 1.25 MG (17611 UT) 1 cap(s) orally once a week; Duration: 84 Active Problems Problem Type SNOMED Code ICD Code Onset Dates Problem Status W/U Status Risk Notes Problem Plantar fasciitis (560250819) Plantar fasciitis (M72.2) Active confirmed Vital Signs Weight 222.6 lbs 04/08/2025 Blood pressure systolic 130 mm Hg 04/08/20 25 Blood pressure diastolic 86 mm Hg 025 Heart Rate 87 /min 04/08/2025 Height 67.50 in 04/08/2025 BMI 34.35 kg/m2 04/08/2025 Encounters Encounter Location Date Provider Diagnosis [facility] [address] [place] [id number] 04/08/2025 Sima Salamanca Plantar fasciitis M7 2.2 ; Left Achilles tendinitis M76.62 ; Right Achilles tendinitis M76.61 and Acute pain of left knee M25.562 Assessments Encounter Date Diagnosis (ICD Code) Assessment Notes Treatment Notes Treatment Clinical Notes Section Notes 04/08/2025 Plantar fasciitis (ICD-10 - M72.2) Gave exercises to do at home. Powerstep insoles. No going barefoot. 04/08/2025 Left Achilles tendinitis (ICD-10 - M76.62) Gave exercises to do at home. Powerstep insoles. No going barefoot. 04/08/2025 Right Achilles tendinitis (ICD-10 - M76.61) Gave exercises to do at home. Powerstep insoles. No going barefoot. 04/08/2025 Acute pain of left knee (ICD-10 - M25.562) Patient would like to try the steroids before getting imaging Plan Of Treatment Medication Medication Name Sig Start Date Stop Date Notes Medrol 4 MG as directed Orally 04/08/2025 Treatment Notes Assessment Notes Plantar fasciitis Gave exercises to do at home. Powerstep insoles. No going barefoot. Left Achilles tendinitis Gave exercises to do at home. Powerstep insoles. No going barefoot. Right Achilles tendinitis Gave exercises to do at home. Powerstep insoles. No going barefoot. Acute pain of left knee Patient would li ke to try the steroids before getting imaging Next Appt Details Follow Up: prn, Reason: Progress Notes * Renate CLAUDIOOB:[birth year] (59 yo F)Acc No.[id number]:04/08/2025 Progress Notes Patient: Daja RAYMUNDO Provider: ISHAAN Stephenson :1965 A ge:59 Y S ex:Female Date:04/08/2025 Address:[address] [place] [address] [id number] Pcp:Anastacio Bay Subjective: * Chief Complaints: * 1 . Bilateral foot pain. * HPI: A nkle/Foot: 59 year old female presents with c/o Pain P t is here today with c/o having bilateral foot pain. Pt sts the pain has been going on for about a year now. Pt sts that 3 weeks ago the pain began getting much worse and it is hard for her to walk.. C ardiology: c/o Blood Pressure Elevated P t sts she has stopped taking her BP medication. Pt sts she had a spell where her BP got too low so she stopped it and it has been normal without it.. K nee/Gonzales: c/o knee pain P t c/o bilateral knee pain as well, but sts the pain in her lt knee is worse than the rt knee. * ROS: D ERMATOLOGY: no R bradley. [...] day , Taking Vitamin D3 1.25 MG (44570 UT) Capsule 1 cap(s) orally once a week , Taking Vitamin C 500 MG Tablet 1 tab(s) orally once a day , Taking Fluticasone Propionate 50 MCG/ACT Suspension 1 spray in each nostril Nasally Once a day , Taking Escitalopram Oxalate 10 mg Tablet TAKE ONE TABLET BY MOUTH ONCE DAILY , Taking GNP Fexofenadine HCl 180 mg Tablet TAKE ONE TABLET BY MOUTH EVERY DAY with water. DO not take with fruit juices. , Not-Taking Promethazine-DM 6.25-15 MG/5ML Syrup 5 ml as needed Orally every 6 hrs, prn , Not-Taking Atorvastatin Calcium 20 mg Tablet TAKE ONE TABLET BY MOUTH ONCE DAILY , Medication List reviewed and reconciled with the patient * Allergies: N .K.D.A. Objective: * Vitals: W t: 222.6, Temp: 98.4, BP: 130/86, HR: 87, Nurse: desire, Ht: 67.50, BMI:34.35. * Examination: G eneral Examination: General Appearance: N AD. C hest: n ormal shape and expansion. H eart: R SR. L ungs: c lear to auscultation. A bdomen: b owel sounds present, soft and nontender. P eripheral pulses: n ormal (2+) bilaterally. E xtremities: n o leg edema. A nkle / Foot: Foot: t tp along bilateral plantar fascia and into the attachment to the calcaneous, pain with dorsiflexion of the foot, there is also ttp along the bilateral achilles tendon attachments. K nee / Gonzales: Knee: l eft. I nspection: n o swelling or redness.?Palpation: t enderness on medial jointline, tenderness on lateral jointline. C ollateral ligaments: i ntact medially and laterally. R abril of motion: p ain at extremes of motion. M cmurray: n egative. D rawer test: n egative. P atellofemoral joint: c repitations with movement. Assessment: * Assessment: 1. P lantar fasciitis - M72.2 (Primary) 2 . L eft Achilles tendinitis - M76.62 3 . R ight Achilles tendinitis - M76.61 4 . A cute pain of left knee - M25.562 Plan: * Treatment: 2. L eft Achilles tendinitis Notes: Gave exercises to do at home. Powerstep insoles. No going barefoot. 3. R ight Achilles tendinitis Notes: Gave exercises to do at home. Powerstep insoles. No going barefoot. 4. A cute pain of left knee Notes: Patient would like to try the steroids before getting imaging * Follow Up: p rn * Images: Billing Information: * Visit Code: 44524 Office Visit, Est Pt., Level 4. * Procedure Codes: * Electronic signature of ISHAAN Manriquez on 06/20/2025 at 03:18 PM EDT Sign off status: Pending * Provider: ISHAAN Stephenson Date: 0 04/08/2025 Generated for Printi ng/Faxing/eTransmitting on: 1 03:18 PM EDT History and Physical Notes * HPI (History of Present Illness) Category Sub-Category Detail Notes Category Not es Cardiology Blood Pressure Elevated Pt sts s he has stopped taking her BP medication. Pt sts she had a spell where her BP got too low so she stopped it and it has been normal without it. Knee/Gonzales knee pain Pt c/o bilateral knee pain as well, but sts the pain in her lt knee is worse than the rt knee Ankle/Foot Pain Pt is here today with c/o having bilateral foot pain. Pt sts the pain has been going on for about a year now. Pt sts that 3 weeks ago the pain began getting much worse and it is hard for her to walk. Examination Category Sub-Category Detail Notes Category Not es General Examination Heart: RSR Lungs: clear to auscultatio n Abdomen: bowel sounds present , soft and nontender Extremities: no leg edema General Appearance: NAD Peripheral pulses: normal (2+) bilatera lly Chest: normal shape and exp ansion Knee / Gonzales [facility]: negative Drawer test: negative Patellofemoral joint: crepitations with movement Palpation: tenderness on medial jointline, tenderness on lateral jointline Knee: left Inspection: no swelling or redne ss Range of motion: pain at extremes of motion Collateral ligaments: intact medially an d laterally Ankle / Foot Foot: ttp along bilate ral plantar fascia and into the attachment to the calcaneous, pain with dorsiflexion of the foot, there is also ttp along the bilateral achilles tendon attachments
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
--- OUTSIDE RECORDS SUMMARY | 2025-06-20 15:19 | XMS_ITS | Clinical Summary ---
Author Organization [facility] Address [address] [place] [address] Care Team Providers Care Collator Hand Name Role Phone Anastacio Bay MD Primary Care Provider + [phone] Allergies No known active allergies Medications atorvastatin [...] Date Last Done Comments Annual Gynecologic Pelvic and Breast Exam 1965 LIPID PANEL 1965 TDAP/TD VACCINES (1 - Tdap) 11/08/1986 MAMMOGRAM 2007 COLOGUARD 11/08/2012 COLON CANCER SCREENING 5 YEAR SIGMOIDOSCOPY 11/08/2012 COLONOSCOPY 11/08/2012 COLORECTAL CANCER SCREENING 11/08/2012 CT COLONOGRAPHY 11/08/2012 FECAL OCCULT BLOOD TEST 11/08/2012 FIT Testing (1 year) 11/08/2012 Pneumococcal Vaccine 50+ (1 of 1 - PCV) 11/08/2017 ZOSTER VACCINE (1 of 2) 11/08/2017 ANNUAL PHYSICAL 07/10/2023 HEPATITIS C SCREENING 07/10/2023 INFLUENZA VACCINE 03/25/2025 09/18/2017 Insurance PPO Care Teams Collator Hand Relationship Specialty Start Date End Date Anastacio Bay MD [address] [facility] [address] [place] [id number] PCP - General Family Medicine 07/09/23
--- OUTSIDE RECORDS SUMMARY | 2025-06-20 15:19 | XMS_ITS | Patient Health Record ---
[facility] [address] [facility] [address] [place] [id number] Care Team Providers Care Investor Relations Director Name Role Phone Anastacio Bay Primary Care Provider Jorden John Unavailable [phone] Bianka Yuan Unavailable [phone] CheikhSima Unavailable [phone] Allergies No Known Allergies Results Component Value Reference Range Notes Influenza Screen (in house) Reviewed date:09/30/2024 05:01:10 PM Interpretation: Performing Lab: Notes/Report: results Pos A Covid test (in house) Reviewed date:09/30/2024 05:01:01 PM Interpretation: Performing Lab: Notes/Report: Result: Neg CBC Venipuncture (in house) Reviewed date:03/23/2025 01:23:34 [...] and other clinical and laboratory findings. See [email or web address] [email or web address]/default/[email or web address] d f for further information. Test performed by [facility], [facility] d/b/a [place] [address] [place] [address] Jersey Rasheed, [place] [address], Jose Quevedo DO, Reeling And Tubing Machine Operator, IA# [id number] P-Pap Test Thin Prep Reviewed date:03/23/2025 01:22:07 [...] imaging, the slide was reviewed by a Radiation Control Specialist and/or Pathologist. Cervical cytology is a screening test primarily for squamous cancers and precursors and has associated false-negative and false-positive results. New technologies such as liquid-based preparations may decrease but will not eliminate all false-negative results. Regular sampling and follow-up of unexplained clinical signs and symptoms are recommended to minimize false negative results. End of Report Technical services provided by [facility], [facility], d/b/a [place] [address] [place] [address] , [place] [address] Frank Rowe MD, Reeling And Tubing Machine Operator. Case reviewed and diagnosis rendered at [facility], d/b/a [place] [address] [place] [address] , [place] [address] Frank Rowe MD, Reeling And Tubing Machine Operator. CONFIDENTIAL P-Comprehensive Metabolic Pa [place] (CMP) Reviewed date:03/23/2025 01:22:36 PM Interpretation:BS 102 Performing Lab: Notes/Report: Test performed by [facility], [address] [place] [address] Remi Flores MD, Reeling And Tubing Machine Operator CLIA: [id number] Sodium 140 135-145 mmol/L Potassium 4.2 3.5-5.3 [...] 153 Performing Lab: Notes/Report: Test performed by [facility], [address] , [address], [place] [address] Remi Flores MD, Reeling And Tubing Machine Operator CLIA: [id number] Cholesterol 172 <200 mg/dL Triglycerides 153 <150 [...] date:03/24/2025 11:11:14 AM Interpretation: Performing Lab: Notes/Report: Mammogram Reviewed date:04/01/2025 01:12:36 PM Interpretation:Negative Performing Lab: Notes/Report: Negative result Negative X ray : Spine, sacrum and co ccyx Reviewed date:02/10/2025 11:16:34 AM Interpretation:pt declined Performing Lab: Notes/Report: pt declined Medications Medication SIG (Take, Route, Frequency, Duration) Notes Start Date End Date Status Vitamin B-12 1000 MCG 1 tab(s) orally on ce a day; Duration: 30 day(s) 05/26/2015 Active GNP Fexofenadine HCl 180 mg 1 tablet with water orally once a day; Duration: 90 days Active Medrol 4 MG as directed Orally 04/08/2025 Active Vitamin C 500 MG 1 tab(s) orally once a day; Duration: 30 day(s) Active Escitalopram Oxalate 10 mg TAKE ONE TABLET BY MOUTH ONCE DAILY; Duration: 90 Active Promethazine-DM 6.25-15 MG/5ML 5 ml as needed Orally every 6 hrs, prn 09/30/2024 Not-Taking Fluticasone Propionate 50 MCG/ACT 1 spray in each nostril Nasally Once a day 03/25/2024 Active Atorvastatin Calcium 20 mg TAKE ONE TABLET BY MOUTH ONCE DAILY; Duration: 90 Active Vitamin D3 1.25 MG (02681 UT) 1 cap(s) orally once a week; Duration: 84 Active Immunizations Vaccine Route Administration Date Status [...] Status W/U Status Risk Notes Problem Hyperlipidemia (75744657) Hyperlipidemia (272.4) Active confirmed Problem Hypertension (29306435) Hypertension NOS (401.9) Active confirmed Problem Mammogram (08583983) Mammogram (793.80) Active confirmed Problem Vitamin D deficiency (65470957) Vitamin D deficiency (E55.9) Active confirmed Problem Vitamin B12 deficiency (494250834) Vitamin B12 deficiency (E53.8) Active confirmed Problem Essential hypertension (00426920) Essential hypertension (I10) Active confirmed Problem Anxiety (74495609) Anxiety (F41.9) Active confirmed Problem Plantar fasciitis (375101592) Plantar fasciitis (M72.2) Active confirmed Problem Bilateral caroti d bruits (R09.89) Active confirmed Problem Seasonal allergic rhinitis (146598662) Other seasonal allergic rhinitis (J30.2) Active confirmed Problem Mixed hyperlipidemia (317456245) Mixed hyperlipidemia (E78.2) Active confirmed Problem Chronic pain (14903288) Other chronic pain (G89.29) Active confirmed Problem Uterine enlargement (450325045) Uterine enlargement (N85.2) Active confirmed Problem Pain in coccyx (finding) (66838413) Coccygeal pain (M53.3) Active confirmed Problem Aortic valve disorder (1982433) Aortic heart murmur (I35.8) Active confirmed Problem Endometrium thickened (finding) (340104009) Endometrial thickening on ultrasound (R93.89) Active confirmed Problem Arthralgia of the pelvic region and thigh (813422305) Hip pain, unspecified laterality (M25.559) Active confirmed Vital Signs Heart Rate 87 /min 04/08/2025 Blood pressure diastolic 86 mm Hg 04/08/2025 Height 67.50 in 04/08/2025 Blood pressure systolic 130 mm Hg 04/08/2025 Weight 222.6 lbs 04/08/2025 BMI 34.35 kg/m2 04/08/2025 Encounters Encounter Location Date Provider Diagnosis [facility] [facility] [address] [place] [id number] 09/30/2024 Sima Salamanca Influenza A J10.1 [facility] [facility] [facility] [address] [place] [id number] 10/25/2024 Jorden John Coccygeal pain M53.3 and Encounter for immunization Z23 [facility] [facility] [facility] [address] [place], [place] [id number] 03/21/2025 Bianka Yuan Essential hypertensi on I10 ; Mixed hyperlipidemia E78.2 ; Other seasonal allergic rhinitis J30.2 ; Anxiety F41.9 ; Uterine enlargement N85.2 ; Encounter for vaccination Z23 and Cervical cancer screening Z12.4 [facility] [address] [facility] [address] [place] [id number] 04/08/2025 Sima Salamanca Plantar fasciitis M7 2.2 ; Left Achilles tendinitis M76.62 ; Right Achilles tendinitis M76.61 and Acute pain of left knee M25.562 [facility] [address] [place], [place] [id number] 01/10/2025 Anastacio Onancock [facility] [address] [place], [place] [id number] 03/24/2025 Bianka Yuan [facility] [address] [place], [place] [id number] 03/29/2025 Anastacio Onancock [facility] [address] [place], [place] [id number] 04/21/2025 Anastacio Onancock [facility] [address] [place], [place] [id number] 05/20/2025 Anastacio Onancock Other seasonal aller gic rhinitis J30.2 Assessments Encounter Date Diagnosis (ICD Code) Assessment Notes Treatment Notes Treatment Clinical Notes Section Notes 09/30/2024 Influenza A (ICD-10 - J10.1) Rest, fluids, tylenol or motrin for fevers. Home until fever free for 24-48 hours without the use of medication. 03/21/2025 Essential hypertension (ICD-10 - I10) 03/21/2025 Mixed hyperlipidemia (ICD-10 - E78.2) 04/08/2025 Plantar fasciitis (ICD-10 - M72.2) Gave exercises to do at home. Powerstep insoles. No going barefoot. 04/08/2025 Left Achilles tendinitis (ICD-10 - M76.62) Gave exercises to do at home. Powerstep insoles. No going barefoot. 05/20/2025 Other seasonal allergic rhinitis (ICD-10 - J30.2) 10/25/2024 Encounter for immunization (ICD-10 - Z23) 10/25/2024 Coccygeal pain (ICD-10 - M53.3) 04/08/2025 Right Achilles tendinitis (ICD-10 - M76.61) Gave exercises to do at home. Powerstep insoles. No going barefoot. 03/21/2025 Other seasonal allergic rhinitis (ICD-10 - J30.2) 03/21/2025 Anxiety (ICD-10 - F41.9) 04/08/2025 Acute pain of left knee (ICD-10 - M25.562) Patient would like to try the steroids before getting imaging 03/21/2025 Uterine enlargement (ICD-10 - N85.2) Given uterine enlargement and possible cyst on cervix will get a transvaginal US 03/21/2025 Encounter for vaccination (ICD-10 - Z23) preventive 03/21/2025 Cervical cancer screening (ICD-10 - Z12.4) Pap smear done today. Will call with results. Plan Of Treatment No Information Insurance Providers Payer Name Payer Address Payer Phone Subscriber Number Group Number Insured Name Patient Relationship to Insured Coverage Start Date Coverage End Date [employer] [address] [place] [address] [id number] Daja Claudio Self - patient is [...]
== END 2025-06-20 23:59 | disposition home or self-care (01) ==
LOC: RAD 14:31
PROVIDERS: PCP Family Medicine; Visit Provider Physician Assistant
DX: M17.12 Unilateral primary osteoarthritis, left knee (principal); M92.512 Juvenile osteochondrosis of proximal tibia, left leg
CPT/HCPCS: 73721

== ENCOUNTER 2025-07-01 08:26 | Outpatient (CLI) | payer BC, SELFPAY ==
--- NOTE | 2025-07-01 08:30 | US_ITS ---
PROCEDURE: US TRANSVAGINAL CLINICAL INDICATION: thickened endometrium COMPARISON: US US TRANSVAGINAL from 03/23/2025 FINDINGS: Transvaginal sonographic images of the pelvis were obtained. UTERUS: 8.3cm x 6.6 cmx 5.9 cm retroverted with a combined endometrial thickness of 6.5mm. There is a 1.4 cm nabothian cyst in the cervix. There is a posterior fibroid measuring 1.1 cm x 0.7 cm x 1.1 cm. LEFT OVARY: 1.1cmx0.9 cmx2.7cm with a volume of 1.4ml. RIGHT OVARY: 2.0cmx 1.5cmx1.0cm with a volume of 1.5ml. Both ovaries are seen and appear normal. Doppler flow to both ovaries are seen. There is no fluid in the cul-de-sac. IMPRESSION: 1. Retroverted, bulky uterus. The endometrium measures 6.5 mm. 2. There is a posterior fibroid measuring 1.1 cm in size. 3. Both ovaries are seen and appear atrophic. 4. No fluid in the cul-de-sac Dictated by: Dominick Bui MD 07/01/2025 15:06 Dominick Bui MD in [place] 07/01/2025 15:06
== END 2025-07-01 23:59 | disposition home or self-care (01) ==
LOC: RAD 08:26
PROVIDERS: PCP Family Medicine; Visit Provider Obstetrics & Gynecology
DX: D25.9 Leiomyoma of uterus, unspecified (principal); N85.4 Malposition of uterus; N85.2 Hypertrophy of uterus; N83.312 Acquired atrophy of left ovary; N83.311 Acquired atrophy of right ovary; R93.89 Abnormal findings on diagnostic imaging of other specified body structures
CPT/HCPCS: 76830

== ENCOUNTER 2025-07-19 15:36 | Outpatient (CLI) | payer BC, SELFPAY ==
--- OUTSIDE RECORDS SUMMARY | 2025-07-19 15:39 | XMS_ITS | Clinical Summary ---
Author Organization [facility] Address [address] [place] [address] Care Team Providers Care Art Display Maker Name Role Phone Anastacio Bay MD Primary Care Provider + [phone] Allergies No known active allergies Medications atorvastatin [...] VACCINE 03/25/2025 09/18/2017 Insurance PPO Care Teams Art Display Maker Relationship Specialty Start Date End Date Anastacio Bay MD [address] [facility] [address] [place] [address] PCP - General Family Medicine 07/09/23
--- NOTE | 2025-07-19 15:43 | ECG_ITS ---
APPROVED REPORT Exam: Resting ECG HR:93 bpm ECG Measurements Heart Rate 93 AXES HI 140 P 63 QRSd 88 QRS 71 QT 335 T 14 QTc 386 Conclusion SINUS RHYTHM NONSPECIFIC T-WAVE ABNORMALITY BORDERLINE ECG UNCONFIRMED REPORT Electronically signed by : Sancho Jane MD 07/20/2025 08:42:33
[2025-07-19 17:11] LABS: Hematocrit 42.6 % (37.0-47.0); Hemoglobin 14.6 g/dL (12.2-16.2); Immature Granulocytes % 0.3 %; Mean Corpuscular HGB Conc 34.3 g/dL (31.8-35.4); Mean Corpuscular Hemoglobin 29.6 pg (27.0-31.2); Mean Corpuscular Volume 86.4 fl (81-99); Nucleated Red Blood Cells % 0 %; Platelet Count 218 K/mm3 (142-424); Red Blood Count 4.93 M/mm3 (4.20-5.40); Red Cell Distribution Width-SD 38.1 fL; White Blood Count 6.8 K/mm3 (4.8-10.8)
[2025-07-19 17:41] LABS: Albumin Level 4.6 g/dl (3.5-5.0); Chloride 104 mmol/L (98-107); Potassium 3.9 mmoL/L (3.5-5.1); Sodium 141 mmol/L (136-145)
[2025-07-19 17:43] LABS: Blood Urea Nitrogen 14 mg/dl (7-17); Creatinine,Serum 0.70 mg/dl (0.52-1.04); Estimated Glomerular Filt Rate 86 ml/min (>60); GFR (African American) 104 ML/MIN (>60)
[2025-07-19 17:44] LABS: Alanine Aminotransferase 47 U/L (12-78); Albumin/Globulin Ratio 1.6 (1.1-1.8); Alkaline Phosphatase 94 U/L (38-126); Anion Gap 15.9 mEq/L (5-15); Aspartate Amino Transferase 38 U/L (14-36); Bilirubin,Total 1.2 mg/dl (0.2-1.3); Calcium 9.4 mg/dl (8.4-10.2); Carbon Dioxide 25 mmol/L (22.0-30.0); Globulin 2.9 g/dL (1.3-3.2); Glucose 93 mg/dl (74-100); Total Protein,Serum 7.5 g/dl (6.3-8.2)
[2025-07-19 17:59] LABS: Free T4 (Free Thyroxine) 1.31 ng/dl (0.78-2.19)
[2025-07-19 18:12] LABS: Thyroid Stimulating Hormone 0.56 uIU/mL (0.465-4.68)
== END 2025-07-19 23:59 | disposition home or self-care (01) ==
LOC: LAB 15:37
PROVIDERS: PCP Family Medicine; Visit Provider Obstetrics & Gynecology
DX: Z01.810 Encounter for preprocedural cardiovascular examination (principal); Z01.812 Encounter for preprocedural laboratory examination; R94.31 Abnormal electrocardiogram [ECG] [EKG]; R68.89 Other general symptoms and signs; R93.89 Abnormal findings on diagnostic imaging of other specified body structures
CPT/HCPCS: 36415; 80053; 84439; 84443; 84480; 84702; 85025; 93005

== ENCOUNTER 2025-07-29 06:09 | Day surgery (SDC) | payer BC, SELFPAY ==
[2025-07-29] VITALS (9 sets, daily range): BP systolic 142–180; BP diastolic 75–94; PULSE 84–91; RESP 15–18; TEMP 36.2–36.9; O2SAT 93–97; BMI 34.6
--- NOTE | 2025-07-29 07:19 | P.PNANES_ITS ---
[facility] Disclaimer: The information contained in this section may have been updated after the patient was seen, as this information can be updated by other users. Medical History History of echocardiogram Normal esophagogastroduodenoscopy (EGD) Allergies Hyperlipidemia Hypertension Surgical History History of H/O tubal ligation H/O right heart catheterization History of colonoscopy Family History Other Family history of diabetes mellitus type II Social History Smoking Status: Never smoker alcohol intake: never substance use type: denies use current occupational status: employed and retired Travel in the last 8 weeks?: Inside the [place] caffeine: Yes Have you lived/traveled outside US in past 30 days?: No Contact w/someone who lives/traveled outside US past 30 days?: No Exposure to someone with infectious disease in past 14 days?: No Do you have a fever (greater than 100.4 F or 38 C)?: No Have you tested positive for COVID-19?: No Exposed to someone with COVID-19 in past 14 days?: No Do you have a sore throat?: No Do you have a cough?: No Do you have any weakness?: No Are you experiencing any nausea/vomitting?: No Do you have any diarrhea?: No Are you experiencing any unusual bleeding?: No Do you have any muscle aches/pain?: No Do you have any abdominal pain?: No Are you experiencing loss of taste or smell?: No [facility] Anesthesia Checklist Patient Identification Patient Identification: Arm Band and Verbal (Name & ) Structural Data Admitted From: Home Planned Operative Procedure/s: D&C Consent for Planned Operative Procedure(s) Verified: Yes Verified Documents: Surgical Consent and History and Physical NPO Status Verified Time NPO: 00:00 Additional verifications Anesthesia Reactions: No Airway Assessment Mallampati Score:: Class III C-Spine Mobility Assessed: No TMJ Mobility Assessed: No Dentition: Good Dentition Neurological Assessment Level of Consciousness: Awake, Alert and Appropriate Hx Seizures: No Numbness or tingling in extremities: No Anesthesia Plan Anesthesia Risk discussed: Yes Anesthesia Plan: Verified ASA Class: II Anesthesia Type: General
[2025-07-29 07:24] LABS: HCG Qualitative, Serum Negative (Negative)
[2025-07-29] MEDS: SODIUM CHLORIDE IRRIG SOLUTION 3,000 ML 25 ML IR (07:42)
[2025-07-29] MEDS: LIDOCAINE 1% W/EPI 1:100,000 20ML VIAL 20 ML (07:50)
--- NOTE | 2025-07-29 08:23 | P.PNANES_ITS ---
[facility] Anesthesia Record Part I Anesthesia Record I Intake, IV Amount: 600 Hydration: Adequate Estimated blood loss (mL): 50 Urine output (mL): 50 Blood Pressure: 163/94 SaO2: 93 Pulse Rate: 91 Airway Patency: Patent Respiratory Rate: 18 Temperature: 98.5 F Patient is:: Awake and Stable Stable to PACU at:: 08:20
--- NOTE | 2025-07-29 08:26 | EXP.OP.NOTE ---
Date of procedure: 07/29/25 Pre-op Diagnosis:: 1. Abnormal uterine bleeding Post-op Diagnosis:: 1. Abnormal uterine bleeding 2. Cervical polyp 3. Proliferative endometrium 4. Endometrial polyp Procedure performed:: Hysteroscopy, dilation, and MyoSure fractional curettage. Cervical polypectomy. Endometrial polypectomy Surgeon:: Selina Corrales DO RESEARCH ASSOCIATE PROFESSOR:: Donya Wesley Anesthesia: GETA Estimated blood loss (mL): 10 Operative findings:: Findings: -EUA was nonrevealing secondary to habitus. Significant uterine procidentia noted with stage III apical prolapse, no significant anterior posterior wall prolapse. There was an accompanying stage II anterior wall prolapse likely secondary to the apical prolapse. Immediately on exam a cervical polyp/mass was noted. -Hysteroscopy revealed three endometrial polyps. two were pedunculated and filled the uterine cavity. The third was on the anterior wall with a broad base near the left ostia. Polyps were able to be removed in their entirety. Operative note:: The patient was taken back to the OR where general anesthesia was obtained.? She was placed in the dorsal lithotomy position using yellow fin stirrups and sterilely prepped and draped in the usual fashion.? An in and out catheter was used to drain her bladder.? A timeout was performed.? A weighted speculum was used to visualize this cervix, immediately significant apical prolapse was noted and a cervical polyp was appreciated. This polyp had a wide base. Cervical polyp was attempted to be removed and a twisting fashion with a ring forcep but secondary to a wide base it was unable to be removed in this manner. 1% lidocaine with epinephrine, 10 mL was injected around the polyp base for hemostasis. MyoSure was used to get an adequate sample of the mass and a fractional D&C was completed. Specimen bag was changed after cervical polyp collection was achieved. A single-tooth tenaculum was applied to the anterior lip of the cervix. The cervix was only slightly dilated to allow entry to the ectocervix and hydrodisection was used to get the scope the rest of the way into the cavity. The hysterscope was inserted and a small endometrial polyp was noted on the posterior wall. Images were obtained of the cavity. The tubal ostia were easily visualized and images were obtained. Decision was made to proceed with the MyoSure for polypectomy. The device was used to resect the outer edge of the polyp until the complete polyp was removed down to the base. Complete curettage of the endometrium was completed with the MyoSure. At the conclusion of the procedure there was a fluid deficit of 130mLs. Total myosure cutting time was 2minutes 52seconds. The MyoSure hysteroscope was removed.? The single-tooth tenaculum was removed and hemostasis was noted at the tenaculum sites.? All instruments were removed from the vagina.? All counts were correct, per nursing.? This concluded the procedure, the patient was awakened from anesthesia, and transferred to the PACU in stable condition. Condition: stable Disposition: PACU Specimens:: 1. Endometrial polyp and curettings 2. Cervical polyp Complications:: None
--- NOTE | 2025-07-29 08:53 | SUR.PHASEI ---
0850- Patient VSS. No complaints of pain. Resting well. 0851- Patient transported to post op. Detailed report given to Sara Rocha RN
== END 2025-07-29 09:21 | disposition home or self-care (01) ==
PROVIDERS: PCP Family Medicine; Visit Provider Obstetrics & Gynecology
PROC: 0UDB8ZZ Extraction of Endometrium, Via Natural or Artificial Opening Endoscopic (ICD-10-PCS; CPT 58558; principal; 2025-07-29 07:30)
DX: N93.9 Abnormal uterine and vaginal bleeding, unspecified (principal); N84.1 Polyp of cervix uteri; N84.0 Polyp of corpus uteri; N81.3 Complete uterovaginal prolapse; N95.1 Menopausal and female climacteric states; E78.5 Hyperlipidemia, unspecified; I10 Essential (primary) hypertension; Z79.899 Other long term (current) drug therapy
CPT/HCPCS: 58558; 84703; J1100; J1200; J2003; J2004; J2250; J2405; J2704; J3010